=== PATIENT | male | born 1955 | race Caucasian/White ===

== ENCOUNTER 2018-12-12 11:30 | Inpatient (IN) | payer SELFPAY ==
[2018-12-12] MEDS ORDERED: Iopamidol 370 76% 100 ML VIAL ONE (12:00)
[2018-12-12] MEDS ORDERED: Ketorolac Tromethamine 30 MG/ML VIAL ONE (12:21)
[2018-12-12 12:31] LABS: #Basophils 0.1 thou/uL (0.0-0.2); #Eosinphils 0.1 thou/uL (0.0-0.7); #Lymphocytes 2.3 thou/uL (1.20-3.40); #Neutrophils 6.7 thou/uL (1.40-6.50); %Basophils 0.9 % (0.0-1.0); %Eosinophils 0.5 % (0.0-10.0); %Lymphocytes 22.6 % (21.0-51.0); %Monocytes 10.1 % (0.0-10.0); %Neutrophils 65.9 % (42.0-75.0); Hemoglobin 14.5 g/dL (14.0-18.0); Mean Corpuscular HGB CONC 34.1 g/dL (32.0-36.0); Mean Corpuscular Hemoglobin 32.6 pg (27.0-31.0); Mean Corpuscular Volume 95.4 fL (78.0-98.0); Mean Platelet Volume 7.1 fL (7.4-10.4); Platelet Count 202 thou/uL (130-400); RBC Distribution Width 12.1 % (11.5-14.5); Red Blood Cell (RBC) Count 4.46 mill/uL (4.70-6.10); White Blood Cell (WBC) Count 10.1 thou/uL (4.8-10.8)
[2018-12-12 12:31] LABS: Glucose, Urine (Dipstick) Negative (Negative); Leukocyte Trace (Negative); Nitrite Negative (Negative); Protein, Urine (Dipstick) > or equal to 300 mg/dL (Neg-Trace)
[2018-12-12 12:33] LABS: Clarity Opaque (Clear)
[2018-12-12 12:34] LABS: Bilirubin Unable to Interpret (Negative); Blood, Urine Large (Negative); Urobilinogen UNABLE TO INTERPRET mg/dL (Less than 2)
[2018-12-12 12:38] LABS: RBC/HPF Greater than 50 HPF (0-3)
[2018-12-12 12:39] LABS: Bacteria/HPF None Seen HPF (None Seen); Squamous Epithelial 0-3 HPF (0-3)
[2018-12-12 12:47] LABS: ALT (SGPT) 11 U/L (8-55); AST (SGOT) 18 U/L (5-34); Albumin 4.2 g/dL (3.4-4.8); Alkaline Phosphatase 71 U/L (40-110); Anion Gap 13 mmol/L (10-20); BUN (Urea Nitrogen) 7 mg/dL (8.4-25.7); Bilirubin, Total 0.6 mg/dL (0.2-1.2); Calc. Creatinine Clearance 0 mL/min (70-130); Calcium 9.3 mg/dL (7.8-10.44); Carbon Dioxide 27 mmol/L (23-31); Chloride 103 mmol/L (98-107); Estimated GFR-MDRD 77; Globulin 3.6 g/dL (2.4-3.5); Glucose 103 mg/dL (80-115); Potassium 4.1 mmol/L (3.5-5.1); Protein, Total 7.8 g/dL (5.8-8.1); Sodium 139 mmol/L (136-145)
--- NOTE | 2018-12-12 17:03 | CT ---
CT ABDOMEN AND PELVIS WITH IV CONTRAST: Date: 12/12/18 HISTORY: Hematuria. Suprapubic abdominal pain. Patient had a cystoscopy which showed a bladder tumor. FINDINGS: There are mild dependent changes in the lung bases. No calcified gallstones are seen. Liver, spleen, pancreas, and adrenal glands are normal. The kidneys are normal. No free air, free fluid, or lymphadenopathy seen in the abdomen or pelvis. A normal appearing appendi x is noted. There are fluid-filled loops of nondilated, nondistended small bowel. There is colonic di verticulosis. There are vascular calcifications without evidence of aneurysmal dilatation of the abdominal aorta. T here are degenerative changes in the spine. There is a right-sided pars interarticularis defect at L5 . The prostate is enlarged. There is thickening of the wall of the urinary bladder, consistent with the history of recently diagnosed neoplasm. No hydroureteronephrosis is seen. IMPRESSION: 1. Bladder neoplasm. 2. Colonic diverticulosis. 3. Prostatic enlargement. POS: OFF
[2018-12-12] MEDS ORDERED: Ondansetron PF 4 MG/2 ML Vial IVP PRN (17:31)
[2018-12-12] MEDS ORDERED: Ketorolac Tromethamine 30 MG/ML VIAL IVP PRN (17:31)
[2018-12-12] MEDS ORDERED: Oxybutynin 5 MG TAB PO PRN (17:31)
[2018-12-12] MEDS ORDERED: diphenhydrAMINE 50 MG/ML VIAL IVP PRN (17:31)
[2018-12-12] MEDS ORDERED: HYDROcodone/Acetaminophen 10/325 mg Tablet PO PRN (17:31)
[2018-12-12] MEDS: D5 0.9% NS w/ 20 mEq KCl 1,000 ML IV SCH (20:00)
--- NOTE | 2018-12-12 20:25 | HP ---
CHIEF COMPLAINT: Hematuria. HISTORY OF PRESENT ILLNESS: This is a 63-year-old male known to me having been seen in my office recently with longstanding hematuria spanning back at least 3 years. This has recently worsened and he is now having difficulty voiding at times. He has passed multiple clots with several clots this morning prompting him to present to the emergency room here. In speaking with him in the exam room he tells me that he is having to strain to urinate with weak stream that often stops mid stream. He reports suprapubic pain, dysuria, abdominal pain. He has noted an increase in hematuria over the past 2-3 days. He denies flank pain, nausea, vomiting, fevers or chills, weight loss, night sweats. He recently underwent cystoscopy in my office showing a large bladder tumor on the left side of his bladder. He was considering when he could have his transurethral resection performed. However, his change in symptoms has prompted him to seek care now. PAST MEDICAL HISTORY: Enlarged prostate, bladder tumor. PAST SURGICAL HISTORY: Cystoscopy. MEDICATIONS: Tamsulosin. SOCIAL HISTORY: Current every day smoker, he reports 1-2 alcoholic drinks per day, he denies substance abuse. ALLERGIES: NO KNOWN ALLERGIES. REVIEW OF SYSTEMS: A 10-point review of systems is negative except as mentioned in my HPI. PHYSICAL EXAMINATION: GENERAL: Afebrile, vitals stable. No acute distress, conversant. HEAD: Normocephalic, atraumatic. RESPIRATORY: Breathing unlabored, symmetric chest expansion. HEART: Regular rate and rhythm. ABDOMEN: Soft, nontender, nondistended. No flank tenderness, bladder nondistended with mild suprapubic tenderness. SKIN: Warm and dry. : Normal phallus, testicles present in the scrotum. NEUROLOGIC: Alert and oriented x3. PSYCHIATRIC: Normal mood and affect. LABORATORY DATA: Reviewed. White count 10, hemoglobin 14.5, creatinine 0.99. Urinalysis with large blood and trace leukocyte esterase. Imaging-CT pending. Gross hematuria secondary to large bladder tumor. The patient and I discussed his options at this point and I have decided to admit him to the hospital for IV hydration with plans for surgical intervention tomorrow. I explained the transurethral resection of bladder tumor procedure in detail and went over the risks of bleeding, infection, pain, bladder perforation requiring long-term catheter or possibly open repair, inability to resect the entirety of the tumor requiring repeat resection or possibly chemotherapy and radical cystectomy. He expressed understanding. I answered all of his questions at this time. Job ID: [id number]
[2018-12-13 00:55] VITALS: BMI 21.7
[2018-12-13] MEDS: D5 0.9% NS w/ 20 mEq KCl 1,000 ML IV SCH ×2 (06:30→20:31)
[2018-12-13] MEDS ORDERED: Dexamethasone 20 MG/5 ML VIAL ONE (12:42)
[2018-12-13] MEDS ORDERED: PROPOFOL 200 MG/20 ML VIAL ONE (12:42)
[2018-12-13] MEDS ORDERED: Lidocaine 1% PF 5 ML VIAL ONE (12:42)
[2018-12-13] MEDS ORDERED: Ondansetron PF 4 MG/2 ML Vial ONE (12:42)
--- NOTE | 2018-12-13 12:47 | EKG ---
Test Reason : PREOP Blood Pressure : / mmHG Vent. Rate : 063 BPM Atrial Rate : 063 BPM P-R Int : 136 ms QRS Dur : 088 ms QT Int : 450 ms P-R-T Axes : 061 064 079 degrees QTc Int : 460 ms Normal sinus rhythm Normal ECG No previous ECGs available Confirmed by DR. Lisa RUTLEDGE ([id number]) on 12/13/2018 12:47:08 PM Referred By: KAREN Confirmed By:DR. Lisa RUTLEDGE
[2018-12-13] MEDS ORDERED: Levofloxacin 500 mg/D5W 100 ml Premix Bag ONE (16:05)
[2018-12-13] MEDS ORDERED: Fentanyl 100 MCG/2 ML VIAL ONE ×3 (17:24→19:33)
[2018-12-13] MEDS ORDERED: Midazolam HCl 2 mg/2 ml Vial ONE (17:24)
[2018-12-13] MEDS ORDERED: Lidocaine 2% Jelly 5 ML TUBE ONE (17:24)
[2018-12-13] MEDS ORDERED: HYDROmorphone 0.5 MG/0.5 ML SYRINGE ONE (17:24)
--- NOTE | 2018-12-13 17:49 | PRG ---
DATE OF SERVICE: 12/13/2018 CHIEF COMPLAINT: Hematuria. SUBJECTIVE: No issues overnight, continued to have difficulty voiding with bladder pain with straining. He reports that his hematuria has improved overnight. He denies flank pain, nausea, vomiting, fevers, chills, or chest pain. OBJECTIVE: VITAL SIGNS: Afebrile, vital signs stable. GENERAL: In no acute distress. Conversant. LUNGS: Nonlabored breathing. CHEST: Symmetric chest expansion. HEART: Regular rate and rhythm. ABDOMEN: Soft, nontender, AND nondistended. No flank tenderness. No suprapubic tenderness. SKIN: Warm and dry. NEUROLOGIC: Alert and oriented x3. PSYCHIATRIC: Normal mood and affect. LABORATORY DATA: Reviewed. White count 10, creatinine 0.99 from yesterday. EKG normal sinus rhythm. CT reviewed, showing no evidence of hydronephrosis. There is thickening of the posterior wall of the bladder, more on the left side, concerning for possible muscle invasion. No other signs of metastatic disease. ASSESSMENT AND PLAN: A 63-year-old male with a large bladder tumor causing obstruction and hematuria. We discussed his options once again, and I have decided to proceed to the operating room today for transurethral resection of bladder tumor and retrograde pyelograms. I did advise him of the risks once again and warranted that he very well may need a catheter for a few days afterwards. All of his questions were answered. He is in agreement with this plan. Job ID: [id number]
[2018-12-13] MEDS ORDERED: Promethazine HCl 25 MG/ML VIAL IM PRN (18:39)
[2018-12-13] MEDS ORDERED: Promethazine HCl 25 MG/ML VIAL SLOW IVP PRN (18:39)
[2018-12-13] MEDS ORDERED: Ondansetron HCl/PF 4 MG/2 ML Vial IVP PRN (18:39)
[2018-12-13] MEDS ORDERED: Iothalamate Meglumine 60% 50 ML VIAL FS ONE (18:58)
[2018-12-13] MEDS ORDERED: hydrALAZINE 20 MG/ML VIAL ONE (19:23)
[2018-12-13] MEDS: Morphine 4 MG/ML VIAL SLOW IVP PRN (20:17)
[2018-12-13] MEDS: Hyoscyamine Sulfate SL 0.125 mg Tablet SL PRN (22:58)
--- NOTE | 2018-12-13 23:07 | OP ---
DATE OF PROCEDURE: 12/13/2018 PREOPERATIVE DIAGNOSIS: Bladder tumor. PREOPERATIVE DIAGNOSIS: Same. PROCEDURES PERFORMED: Transurethral resection of large bladder tumor, right retrograde pyelogram, transurethral resection of prostate for biopsy, resection and removal of large blood clots. ANESTHESIA: General. COMPLICATIONS: None. BLOOD LOSS: Minimal. SPECIMENS: Prostate biopsy, bladder tumor. DESCRIPTION OF PROCEDURE: After informed consent, the patient was taken to the operating room, transferred to his table under his own power. Anesthesia was established. A time-out was performed showing correct patient, site, and procedure. He was prepped and draped in the supine position. I performed a digital rectal exam noting a 30 g prostate without nodules or induration, there is no pelvic sidewall fixation, no abnormalities on rectal exam. I then switched gloves and passed the rigid cystoscope into the bladder. There was a large blood clot connected to the tumor emanating from the left wall and trigone. I was able to identify the right ureteral orifice easily, this was cannulated with a [place] catheter and a retrograde pyelogram performed showing good filling of the ureter and kidney without abnormalities. After multiple attempts, I was unable to identify the left ureter noting that the tumor occupied the location that I expected to find it. I then switched to the rigid resectoscope and using the resection loop, had to cut the large blood clot in his bladder into small pieces so that it could be removed. I then resected the low-profile high-grade appearing tumor which began about midline of the trigone and extended up the left wall. Total area was about 7 cm. I carried the resection down deeply into what should have been the muscle; however, the tumor persisted. This clearly seems to be muscle invasive bladder cancer. I was unable to identify the ureter during my resection. I then made sure that meticulous hemostasis was achieved. All specimen chips were removed. The bladder was then drained and reinspected noting no further specimen chips or bleeding. I then performed a resection of the prostate from the bladder neck back to the verumontanum and sent the midline slight for staging. Hemostasis was achieved here as well. The scope was then withdrawn and a 22-Comoran 3-way catheter placed with a plug in the irrigation port. Urine was draining clear to light pink after it was connected to a drainage bag. He was then brought down from the lithotomy position. Awoke from anesthesia, transferred back to his hospital bed and taken to PACU in stable condition where he will return to the floor upon recovery. Job ID: [id number]
[2018-12-14] MEDS: D5 0.9% NS w/ 20 mEq KCl 1,000 ML IV SCH ×3 (02:00→17:23)
[2018-12-14] MEDS: Morphine 4 MG/ML VIAL SLOW IVP PRN (04:06)
[2018-12-14] MEDS: Hyoscyamine Sulfate SL 0.125 mg Tablet SL PRN (04:15)
[2018-12-14 08:41] LABS: Hemoglobin 12.7 g/dL (14.0-18.0); Mean Corpuscular Hemoglobin 32.2 pg (27.0-31.0); Mean Corpuscular Volume 97.5 fL (78.0-98.0); Mean Platelet Volume 7.4 fL (7.4-10.4); Platelet Count 191 thou/uL (130-400); RBC Distribution Width 11.9 % (11.5-14.5); Red Blood Cell (RBC) Count 3.94 mill/uL (4.70-6.10); White Blood Cell (WBC) Count 10.2 thou/uL (4.8-10.8)
[2018-12-14 09:08] LABS: ALT (SGPT) 11 U/L (8-55); AST (SGOT) 21 U/L (5-34); Albumin 3.7 g/dL (3.4-4.8); Alkaline Phosphatase 55 U/L (40-110); Anion Gap 14 mmol/L (10-20); BUN (Urea Nitrogen) 8 mg/dL (8.4-25.7); Bilirubin, Total 0.8 mg/dL (0.2-1.2); Calc. Creatinine Clearance 62 mL/min (70-130); Calcium 8.7 mg/dL (7.8-10.44); Carbon Dioxide 24 mmol/L (23-31); Chloride 99 mmol/L (98-107); Estimated GFR-MDRD 55; Glucose 184 mg/dL (80-115); Potassium 4.3 mmol/L (3.5-5.1); Protein, Total 6.7 g/dL (5.8-8.1); Sodium 133 mmol/L (136-145)
[2018-12-15] MEDS: D5 0.9% NS w/ 20 mEq KCl 1,000 ML IV SCH ×3 (01:03→18:49)
[2018-12-15 04:19] LABS: #Eosinphils 0.1 thou/uL (0.0-0.7); #Lymphocytes 1.7 thou/uL (1.20-3.40); #Monocytes 0.9 thou/uL (0.11-0.59); #Neutrophils 4.6 thou/uL (1.40-6.50); %Basophils 0.2 % (0.0-1.0); %Eosinophils 0.8 % (0.0-10.0); %Lymphocytes 22.8 % (21.0-51.0); %Monocytes 12.5 % (0.0-10.0); %Neutrophils 63.6 % (42.0-75.0); Hemoglobin 10.5 g/dL (14.0-18.0); Mean Corpuscular HGB CONC 33.8 g/dL (32.0-36.0); Mean Corpuscular Hemoglobin 32.7 pg (27.0-31.0); Mean Corpuscular Volume 96.9 fL (78.0-98.0); Mean Platelet Volume 7.2 fL (7.4-10.4); Platelet Count 149 thou/uL (130-400); RBC Distribution Width 12.1 % (11.5-14.5); Red Blood Cell (RBC) Count 3.22 mill/uL (4.70-6.10); White Blood Cell (WBC) Count 7.2 thou/uL (4.8-10.8)
[2018-12-15 04:43] LABS: Anion Gap 12 mmol/L (10-20); BUN (Urea Nitrogen) 9 mg/dL (8.4-25.7); Calc. Creatinine Clearance 55 mL/min (70-130); Calcium 8.2 mg/dL (7.8-10.44); Carbon Dioxide 23 mmol/L (23-31); Chloride 107 mmol/L (98-107); Estimated GFR-MDRD 48; Glucose 124 mg/dL (80-115); Potassium 4.2 mmol/L (3.5-5.1); Sodium 138 mmol/L (136-145)
--- NOTE | 2018-12-15 06:24 | PRG ---
DATE OF SERVICE: 12/14/2018 SUBJECTIVE: The patient with hematuria overnight, requiring irrigation and clot removal. Upon arriving to his room this morning, he was in significant distress with clot retention. He denies chest pains, shortness of breath, nausea, vomiting, fevers, or chills. OBJECTIVE: VITAL SIGNS: Afebrile, vitals stable. GENERAL: The patient appears very uncomfortable on rounds. LUNGS: Breathing unlabored. ABDOMEN: Soft, nontender. GENITOURINARY: Bladder distended. SKIN: Warm and dry. No peripheral edema. LABORATORY DATA: White count 10, hemoglobin 12.7, and creatinine 1.3. Postop day 1, transurethral resection of large bladder tumor, likely muscle invasive. Urine was clear for about 2 hours after his surgery yesterday then developed spontaneous bleed. At his bedside this morning, I was able to irrigate a moderate amount of blood clot and start CBI which was running clear on flow to a medium drip rate. Repeat lab work tomorrow. If urine remains mostly clear or better overnight, we will transfer back to the floor tomorrow with discharge anticipated for likely December 16. If his urine does not clear well overnight, he may require return to the operating room for fulguration. Job ID: [id number]
--- NOTE | 2018-12-15 08:15 | PRG ---
DATE OF SERVICE: 12/15/2018 SUBJECTIVE: No acute events overnight. He has not required manual irrigation. CBI has been run slowly. He denies suprapubic pain, flank pain, nausea, vomiting, fevers, or chills. PHYSICAL EXAMINATION: VITAL SIGNS: Afebrile, vitals stable. GENERAL: No acute distress. LUNGS: Nonlabored breathing. ABDOMEN: Soft, nontender, nondistended. Bladder nondistended. SKIN: Warm and dry. Catheter draining clear to light pink with a very slow drip CBI. LABORATORY DATA: Reviewed. Hemoglobin 10.5 down from 12.7 yesterday. Creatinine up to 1.5 from 1.33 yesterday. ASSESSMENT/PLAN: Postoperative day #2 resection of large bladder tumor. Routine postoperative care, pain control, incentive spirometry, SCDs, up to chair, regular diet. Continue CBI as necessary. He will transition back to the regular floor. Anticipate discharge will be possible tomorrow. Job ID: [id number]
[2018-12-15] MEDS ORDERED: Docusate 100 MG CAP PO SCH (11:30)
--- NOTE | 2018-12-15 17:55 | CT ---
CT Stone Protocol: 12/15/2018 4:48 PM HISTORY: Bladder tumor with possible obstruction of the ureter. COMPARISON: 12/12/2018 TECHNIQUE: Multiple contiguous axial images were obtained and a CT of the abdomen and pelvis without IV contrast . Oral contrast was administered. Coronal and sagittal reformats were performed. FINDINGS: This examination is limited for the evaluation of solid organs and vascular structures due to the lac k of intravenous contrast. Lower Chest: within normal limits. Abdomen: Liver: within normal limits. Bile Ducts: Normal caliber. Gallbladder: No calcified gallstones. Normal caliber wall. Pancreas: within normal limits. Spleen: within normal limits. Adrenals: within normal limits. Kidneys: Moderate left hydronephrosis which has worsened compared to the prior exam. Pelvis: Reproductive Organs: No pelvic masses. Ureters: Moderate left hydroureter Bladder: Contains a Nazario catheter. High density material within the bladder likely represents a bloo d clot. It is difficult to evaluate the bladder wall given the high density material within the lumen of the urinary bladder. Bowel: Normal caliber. Mesenteric Lymph Nodes: No enlarged mesenteric lymph nodes. Peritoneum: No ascites or free air, no fluid collection. Vessels: Atherosclerotic calcifications in the aorta Retroperitoneum: within normal limits. Abdominal Wall: within normal limits. Bones: Degenerative changes in the spine. IMPRESSION: 1. There is likely postoperative change in the urinary bladder which contains a blood clot and Nazario catheter. There is moderate worsened left hydronephrosis and hydroureter likely secondary to obstruction of the ureterovesical junction. This could be from edema or tumor of the bladder wall or secondary to the blood clot within the bladder.
--- NOTE | 2018-12-15 17:56 | RAD ---
EXAM: Chest 2 views: HISTORY: Transitional cell carcinoma of the urinary bladder COMPARISON: None. FINDINGS: There is a normal-sized cardiomediastinal silhouette. There is no evidence of consolidation, mass, or pleural effusion. The bones are unremarkable. IMPRESSION: No evidence of acute cardiopulmonary disease
[2018-12-15] MEDS: Docusate 100 MG CAP PO SCH (20:54)
[2018-12-16 06:02] LABS: Hemoglobin 10.9 g/dL (14.0-18.0); Mean Corpuscular HGB CONC 33.3 g/dL (32.0-36.0); Mean Corpuscular Hemoglobin 31.7 pg (27.0-31.0); Mean Corpuscular Volume 95.3 fL (78.0-98.0); Mean Platelet Volume 7.4 fL (7.4-10.4); Platelet Count 167 thou/uL (130-400); RBC Distribution Width 11.7 % (11.5-14.5); Red Blood Cell (RBC) Count 3.44 mill/uL (4.70-6.10); White Blood Cell (WBC) Count 7.6 thou/uL (4.8-10.8)
[2018-12-16 06:23] LABS: Anion Gap 11 mmol/L (10-20); BUN (Urea Nitrogen) 6 mg/dL (8.4-25.7); Calc. Creatinine Clearance 59 mL/min (70-130); Calcium 8.8 mg/dL (7.8-10.44); Carbon Dioxide 26 mmol/L (23-31); Chloride 103 mmol/L (98-107); Estimated GFR-MDRD 52; Glucose 105 mg/dL (80-115); Potassium 3.9 mmol/L (3.5-5.1); Sodium 136 mmol/L (136-145)
[2018-12-16] MEDS: Docusate 100 MG CAP PO SCH ×2 (09:03→21:01)
[2018-12-16] MEDS ORDERED: PROPOFOL 200 MG/20 ML VIAL ONE (10:47)
[2018-12-16] MEDS ORDERED: ePHEDrine/0.9% NaCl/PF SYRINGE 50 mg/10 ml ONE (10:47)
[2018-12-16] MEDS ORDERED: Lidocaine 1% PF 5 ML VIAL ONE (10:47)
[2018-12-16] MEDS ORDERED: Dexamethasone 20 MG/5 ML VIAL ONE (10:47)
[2018-12-16] MEDS ORDERED: Ondansetron PF 4 MG/2 ML Vial ONE (10:47)
[2018-12-16] MEDS ORDERED: Levofloxacin 500 mg/D5W 100 ml Premix Bag ONE (12:59)
[2018-12-16] MEDS ORDERED: Midazolam HCl 2 mg/2 ml Vial ONE (13:41)
[2018-12-16] MEDS ORDERED: Fentanyl 100 MCG/2 ML VIAL ONE (13:43)
--- NOTE | 2018-12-16 20:17 | CON ---
DATE OF CONSULTATION: REASON FOR CONSULTATION: Transitional cell carcinoma. HISTORY OF PRESENT ILLNESS: Mr. Del Toro is a pleasant 63-year-old gentleman, who has long-standing hematuria, being followed by Dr. Padilla. He had significantly worse symptoms over the past few days. He underwent cystoscopy, which showed a large bladder tumor on the left side. He underwent a transurethral resection of the bladder tumor. Pathology returned high-grade urothelial carcinoma consistent with transitional cell, was extensively invasive and necrotic. The patient has been on continuous bladder irrigation and unfortunately has planned clot retrieval today. He has undergone a CT of his abdomen and pelvis, which shows no metastatic disease. He denies any complaints at this time. PAST MEDICAL HISTORY: Enlarged prostate. PAST SURGICAL HISTORY: Cystoscopy. ALLERGIES: NO KNOWN DRUG ALLERGIES. HOME MEDICATIONS: Flomax. FAMILY HISTORY: Father had prostate cancer. SOCIAL HISTORY: Single, 45 pack-year history of smoking, drinks beer 1 to 2 daily. REVIEW OF SYSTEMS: A 10-point review of systems is negative except for noted in HPI. PHYSICAL EXAMINATION: VITAL SIGNS: Temperature is 98.3, pulse is 82, respiratory rate 16, BP is 111/72. He is 96% on room air. GENERAL: This is a well-developed, well-nourished male, in no acute distress. HEENT: Normocephalic, atraumatic. Pupils are equal and reactive to light. NECK: Supple. CV: Regular rate and rhythm. LUNGS: Clear. ABDOMEN: Soft. : He has a Nazario catheter in place with CBI, blood-tinged urine. EXTREMITIES: No clubbing or cyanosis. SKIN: No rash. HEMATOLOGICAL: No petechiae or purpura. NEUROLOGIC: Nonfocal. PERTINENT LABS AND X-RAYS: Current WBCs 7.6, hemoglobin 10.9, hematocrit 32.8, platelet count is 167,000, he has 63% neutrophils, 22% lymphocytes. Sodium 136, potassium 3.9, chloride 103, CO2 is 26, BUN is 6, creatinine 1.38, calcium 8.8, bilirubin 0.8, AST is 21, ALT is 11, alkaline phosphatase is 55, serum total protein 6.7, albumin 3.7, and globulin 3. Radiology per HPI. ASSESSMENT: High-grade urothelial transitional cell carcinoma. DISCUSSION: The patient is having clot retrieval today and will likely go home over the weekend. He has seen financial counselors and will continue to work on financial assistance. We will see the patient in the outpatient setting on 12/29, where he and Dr. Du can discuss treatment options. Clinic information was provided to the patient. All questions were answered. Thank you for the consult. Job ID: [id number]
--- NOTE | 2018-12-17 00:04 | OP ---
DATE OF PROCEDURE: 12/16/2018 PREOPERATIVE DIAGNOSIS: intravesical blood clot. POSTOPERATIVE DIAGNOSIS: same PROCEDURE: Cystoscopy with clot evacuation and fulguration. ANESTHESIA: General. COMPLICATIONS: None. SPECIMENS: None. BLOOD LOSS: Minimal. DESCRIPTION OF PROCEDURE: After informed consent, the patient was taken to the operating room, transferred to the table under his own power. Anesthesia was established. A time-out performed showing the correct patient, site, and procedure. Preoperative antibiotics were administered. He was prepped and draped in the lithotomy position. Nazario catheter was removed. I then inserted the rigid resectoscope into the bladder. There was a large clot in the dependent portion of the bladder. This was removed with the [employer] evacuator. Once the clot was removed in its entirety, I switched the resection loop and cauterized the previous resection bed. No significant bleeding was noted. However, there were several areas with small amount of bleeding around the edges. The bladder was drained and reexamined noting no bleeding at that point. The scope was then withdrawn and a 22-Chilean 3-way Nazario catheter placed with 20 mL instilled in the balloon. This was connected to CBI and was clear on a very slow drip. He was awoken from anesthesia, transferred back to his hospital bed and taken to PACU in stable condition, where he will proceed to the floor upon recovery. Job ID: [id number] [facility]
[2018-12-17] MEDS: Docusate 100 MG CAP PO SCH (07:26)
[2018-12-17 07:56] VITALS: BP 130/71; TEMP 98.2
--- NOTE | 2018-12-19 08:21 | PRG ---
DATE OF SERVICE: 12/16/2018 SUBJECTIVE: No acute events overnight. He denies back pain, abdominal pain, nausea, vomiting, fevers, or chills. OBJECTIVE: VITAL SIGNS: Afebrile. Vitals stable. GENERAL: Urine remains very light pink on slow CBI. No acute distress. LUNGS: Nonlabored breathing. ABDOMEN: Soft. No flank tenderness. SKIN: Warm and dry. EXTREMITIES: No peripheral edema. CT from last night showed a large clot in the bladder and mild, but worse hydronephrosis on the left side. Hemoglobin stable. Creatinine reduced from yesterday. Postoperative day #3, transurethral resection of large bladder tumor with high- grade muscle invasive pathology. Based on the CT findings, I have recommended that we will return to the operating room today for cystoscopy and clot evacuation. I explained my rationale and went over the procedure in detail including risks. The patient is in agreement. Job ID: [id number] MTDD
--- NOTE | 2018-12-19 10:24 | DIS ---
DATE OF ADMISSION: 12/12/2018 DATE OF DISCHARGE: 12/17/2018 CHIEF COMPLAINT: Hematuria and difficulty voiding. FINAL DIAGNOSES: Muscle invasive high-grade bladder cancer and hydronephrosis. HOSPITAL COURSE: A 63-year-old male with longstanding hematuria, presented to the emergency room with continued hematuria and difficulty voiding. He was admitted and CT scan indicated large tumor occupying the left wall of the bladder. He was taken the next day for transurethral resection of bladder tumor noting a high-grade appearing low profile tumor. His urine was clear for the first few hours after the surgery; however, overnight, he developed spontaneous bleeding and required initiation of CBI. The following day, I performed clot evacuation at bedside; however, his creatinine alek over the next 2 days to about 1.5. At which point, I repeated a CT scan which showed only mild left hydronephrosis consistent with my inability to find the left UO at the time of transurethral resection. The CT also showed large blood clot retained in the bladder. He was taken back to the operating room on December 16 for cystoscopy with clot evacuation and fulguration. His urine remained clear overnight without CBI. The following morning, his Nazario catheter was removed, and he was ready for discharge home. CONDITION AT DISCHARGE: Stable. PRESCRIPTIONS: Bactrim, oxybutynin, tramadol. PLAN: The patient will have followup with Medical Oncology on December 29 and I will see him after that visit. Job ID: [id number]
== END 2018-12-17 11:10 | disposition home or self-care (01) | DRG 669 ==
LOC: ERS 11:30 → SURG A 18:55 → IMCU/EMU 12-14 02:23 → SURG A 12-15 21:23
PROVIDERS: ADMIT Urology; ATTEND Urology
PROC: 0TBB8ZZ Excision of Bladder, Via Natural or Artificial Opening Endoscopic (ICD-10-PCS; principal; 2018-12-13)
PROC: 0TBC8ZZ Excision of Bladder Neck, Via Natural or Artificial Opening Endoscopic (ICD-10-PCS; 2018-12-13)
PROC: 0VB08ZX Excision of Prostate, Via Natural or Artificial Opening Endoscopic, Diagnostic (ICD-10-PCS; 2018-12-13)
PROC: BT1D1ZZ Fluoroscopy of Right Kidney, Ureter and Bladder using Low Osmolar Contrast (ICD-10-PCS; 2018-12-13)
PROC: 0TCB8ZZ Extirpation of Matter from Bladder, Via Natural or Artificial Opening Endoscopic (ICD-10-PCS; 2018-12-13)
PROC: 0T5B8ZZ Destruction of Bladder, Via Natural or Artificial Opening Endoscopic (ICD-10-PCS; 2018-12-16)
PROC: 0TCB8ZZ Extirpation of Matter from Bladder, Via Natural or Artificial Opening Endoscopic (ICD-10-PCS; 2018-12-16)
DX: C67.4 Malignant neoplasm of posterior wall of bladder (principal); N13.30 Unspecified hydronephrosis; F17.200 Nicotine dependence, unspecified, uncomplicated; R31.0 Gross hematuria
CPT/HCPCS: 36415; 71046; 74176; 74177; 80048; 80053; 81003; 81015; 85025; 85027; 86850; 86900; 86901; 88305; 88307; 93005; 93010; 96361; 96374; C1758; J0360; J1100; J1170; J1885; J1956; J2001; J2250; J2270; J2405; J2704; J3010; J3480; Q9967

== ENCOUNTER 2019-01-16 09:38 | Outpatient (CLI) | payer SELFPAY ==
[2019-01-16 10:08] LABS: Estimated GFR-MDRD - POC Greater than 90
--- NOTE | 2019-01-16 10:37 | CT ---
CT chest with IV contrast HISTORY: Bladder cancer. Initial staging. FINDINGS: Lungs are hyperinflated. Mild bullae at the upper lobes. No focal lung mass, infiltrate, pl eural fluid, or pneumothorax. Nonenlarged lymph nodes throughout the mediastinum. Calcification in the arterial structures. Tiny bone islands within the right ribs. No focal aggressive lesions. Degenerative changes of the cervical and thoracic spine. Minimal chronic-appearing physiologic wedgin g of the T5 and T6 vertebral bodies. IMPRESSION: No evidence of metastatic disease of the chest. Emphysema. Atherosclerosis.
[2019-01-16] MEDS ORDERED: Iopamidol-370 76% 500 ML 1 ML ONE (11:05)
== END 2019-01-16 09:39 | disposition home or self-care (01) ==
LOC: BICCT 09:38
PROVIDERS: ATTEND Internal Medicine Hematology & Oncology
DX: C67.2 Malignant neoplasm of lateral wall of bladder (principal); I70.0 Atherosclerosis of aorta; J43.9 Emphysema, unspecified
CPT/HCPCS: 71260; 82565; Q9967

== ENCOUNTER 2019-01-26 05:30 | Day surgery (SDC) | payer OTHER, SELFPAY ==
[2019-01-25 10:23] VITALS: BMI 21.6
[2019-01-26 06:40] LABS: #Lymphocytes 1.5 thou/uL (1.20-3.40); #Monocytes 0.8 thou/uL (0.11-0.59); #Neutrophils 4.4 thou/uL (1.40-6.50); %Basophils 0.6 % (0.0-1.0); %Eosinophils 0.7 % (0.0-10.0); %Lymphocytes 22.4 % (21.0-51.0); %Monocytes 11.6 % (0.0-10.0); %Neutrophils 64.6 % (42.0-75.0); Hemoglobin 14.8 g/dL (14.0-18.0); Mean Corpuscular Hemoglobin 32.2 pg (27.0-31.0); Mean Corpuscular Volume 94.7 fL (78.0-98.0); Mean Platelet Volume 7.3 fL (7.4-10.4); Platelet Count 202 thou/uL (130-400); RBC Distribution Width 11.9 % (11.5-14.5); White Blood Cell (WBC) Count 6.7 thou/uL (4.8-10.8)
[2019-01-26] MEDS ORDERED: Bupivacaine 0.25% HCL 30 ML VIAL ONE (06:42)
[2019-01-26] MEDS ORDERED: Lidocaine 2% w/Epinephrine 1:200K 20 ML VIAL ONE (06:50)
[2019-01-26] MEDS ORDERED: Lidocaine 1% w/Epinephrine 1:100K 20 ML VIAL ONE (06:51)
[2019-01-26] MEDS ORDERED: Fentanyl 100 MCG/2 ML VIAL ONE (06:56)
[2019-01-26 07:01] LABS: Anion Gap 16 mmol/L (10-20); BUN (Urea Nitrogen) 10 mg/dL (8.4-25.7); Calc. Creatinine Clearance 86 mL/min (70-130); Calcium 10.1 mg/dL (7.8-10.44); Carbon Dioxide 27 mmol/L (23-31); Chloride 100 mmol/L (98-107); Estimated GFR-MDRD 81; Glucose 99 mg/dL (80-115); Potassium 4.3 mmol/L (3.5-5.1); Sodium 139 mmol/L (136-145)
--- NOTE | 2019-01-26 08:20 | RAD ---
RADIOGRAPH CHEST 1 VIEW: DATE: 01/26/2019 HISTORY: 63-year-old male status post MediPort placement. FINDINGS: There are no airspace densities, pulmonary edema, pneumothorax, or cardiomegaly. The lateral costophr enic angles are sharp. Right IJ MediPort distal tip overlies SVC. IMPRESSION: 1. Right-sided implantable vascular access port without pneumothorax. 2. No acute cardiopulmonary findings.
[2019-01-26] MEDS ORDERED: PROPOFOL 200 MG/20 ML VIAL ONE (14:27)
[2019-01-26] MEDS ORDERED: ePHEDrine/0.9% NaCl/PF SYRINGE 50 mg/10 ml ONE (14:27)
[2019-01-26] MEDS ORDERED: Ondansetron PF 4 MG/2 ML Vial ONE (14:27)
[2019-01-26] MEDS ORDERED: Lidocaine 1% PF 5 ML VIAL ONE (14:27)
--- NOTE | 2019-01-27 13:13 | OP ---
DATE OF PROCEDURE: 01/26/2019 PROCEDURE PERFORMED: Right internal jugular MediPort with ultrasound and fluoroscopic guidance. PREOPERATIVE DIAGNOSIS: Bladder cancer. POSTOPERATIVE DIAGNOSIS: Bladder cancer. INDICATIONS FOR PROCEDURE: Mr. Del Toro is a 63-year-old with muscle invasive bladder cancer, who is undergoing neoadjuvant chemotherapy. A MediPort has been requested for this. Due to his COPD, the recommendation was made to place this in the internal jugular position to minimize risk of pneumothorax. DESCRIPTION OF PROCEDURE: After informed consent was obtained and appropriate preoperative antibiotics administered, the patient was taken to the operating room. He was placed in supine position, and anesthesia was administered. He was prepped and draped in standard sterile fashion, and a sterile ultrasound probe was used to identify the patent compressible right internal jugular vein. Local anesthesia was infused, and the vein was accessed under direct ultrasound guidance with excellent flow of dark venous nonpulsatile blood. A wire was threaded and was confirmed by ultrasound to be within the patent compressible vein and by fluoroscopy to be within the superior vena cava. Additional local anesthesia was infused through the skin and subcutaneous tissues of the right neck and chest, and a skin incision was made over the pectoral muscle. A subcutaneous pocket was created, and the port was placed within this pocket with Prolene sutures. A clamped MediPort tubing was then tunneled between this incision and the right neck access site. A dilator and sheath were placed over the wire, and the dilator and wire were removed leaving the sheath in place. The MediPort tubing was then placed through the sheath, which was split and removed leaving the MediPort tubing in place. This was positioned with the end in the superior vena cava just above the atrium under fluoroscopic guidance. The tubing was then connected to the MediPort, which was secured within the pocket with additional Prolene sutures. The port was aspirated with excellent flow of dark venous nonpulsatile blood and easily flushed without resistance. The subcutaneous tissues were reapproximated with 3-0 Monocryl sutures, and the skin incisions were closed with running 4-0 subcuticular Monocryl sutures. Dermabond dressings were placed, and the patient was taken to Recovery in good condition. ESTIMATED BLOOD LOSS: Minimal. COMPLICATIONS: There were no complications. SPECIMENS: There were no specimens. Job ID: [id number]
== END 2019-01-26 09:15 | disposition home or self-care (01) ==
LOC: SDC 05:30
PROVIDERS: ATTEND Surgery
PROC: 05HM33Z Insertion of Infusion Device into Right Internal Jugular Vein, Percutaneous Approach (ICD-10-PCS; principal; 2019-01-26)
DX: C67.9 Malignant neoplasm of bladder, unspecified (principal); F17.210 Nicotine dependence, cigarettes, uncomplicated; J44.9 Chronic obstructive pulmonary disease, unspecified
CPT/HCPCS: 71045; 76000; 80048; 85025; C1788; J0131; J0690; J1642; J2001; J2405; J2704; J3010; S0020

== ENCOUNTER 2019-02-15 10:02 | Day surgery (SDC) | payer OTHER ==
[~2019-02-15 10:02] MED LIST: CISPLATIN IV SCH; Dexamethasone Sod Phosphate 20 MG in Sodium Chloride 0.9% 50 ML IVPB SCH; GEMCITABINE HCL IVPB SCH; MANNITOL IV SCH; Palonosetron HCl 0.25 MG in Sodium Chloride 0.9% 50 ML IVPB SCH; SODIUM CHLORIDE 0.9% IV SCH; SODIUM CHLORIDE 0.9% IVPB SCH; Sodium Chloride 0.9% 1,000 ML IV SCH; Sodium Chloride 0.9% 500 ML IVPB SCH
[2019-02-15] MEDS ORDERED: Sodium Chloride 0.9% 20 ML ONE (10:05)
[2019-02-15 12:20] VITALS: BP 154/75; TEMP 98.6
== END 2019-02-15 16:00 | disposition home or self-care (01) ==
LOC: ONC/OP 10:02
PROVIDERS: ATTEND Internal Medicine Hematology & Oncology
DX: Z51.11 Encounter for antineoplastic chemotherapy (principal); C67.2 Malignant neoplasm of lateral wall of bladder; F17.210 Nicotine dependence, cigarettes, uncomplicated; Z80.42 Family history of malignant neoplasm of prostate
CPT/HCPCS: 96367; 96375; 96413; 96415; 96417; J1100; J1453; J2150; J2469; J3480; J3490; J7050; J9060; J9201

== ENCOUNTER 2019-02-22 09:49 | Day surgery (SDC) | payer OTHER ==
[~2019-02-22 09:49] MED LIST changes: -CISPLATIN IV SCH; +Dexamethasone Sod Phosphate 10 MG, Ondansetron 2MG/ML MDV 10 MG in Sodium Chloride 0.9%... IVPB SCH; -Dexamethasone Sod Phosphate 20 MG in Sodium Chloride 0.9% 50 ML IVPB SCH; -MANNITOL IV SCH; -Palonosetron HCl 0.25 MG in Sodium Chloride 0.9% 50 ML IVPB SCH; -SODIUM CHLORIDE 0.9% IV SCH; -Sodium Chloride 0.9% 1,000 ML IV SCH; -Sodium Chloride 0.9% 500 ML IVPB SCH
[2019-02-22] MEDS ORDERED: SODIUM CHLORIDE 0.9% IVPB SCH (10:00)
[2019-02-22] MEDS ORDERED: GEMCITABINE HCL IVPB SCH (10:00)
[2019-02-22 12:24] VITALS: BP 131/78; TEMP 98.8
== END 2019-02-22 12:29 | disposition home or self-care (01) ==
LOC: ONC/OP 09:49
PROVIDERS: ATTEND Internal Medicine Hematology & Oncology
DX: Z51.11 Encounter for antineoplastic chemotherapy (principal); C67.2 Malignant neoplasm of lateral wall of bladder
CPT/HCPCS: 96375; 96413; J1100; J2405; J7050; J9201

== ENCOUNTER → 2019-03-15 | Day surgery (SDC) | payer OTHER ==
[~2019-03-15] MED LIST changes: +CISPLATIN IV SCH; -Dexamethasone Sod Phosphate 10 MG, Ondansetron 2MG/ML MDV 10 MG in Sodium Chloride 0.9%... IVPB SCH; +Dexamethasone Sod Phosphate 20 MG in Sodium Chloride 0.9% 50 ML IVPB SCH; +MANNITOL IV SCH; +Palonosetron HCl 0.25 MG in Sodium Chloride 0.9% 50 ML IVPB SCH; +SODIUM CHLORIDE 0.9% IV SCH; +Sodium Chloride 0.9% 1,000 ML IV SCH; +Sodium Chloride 0.9% 20 ML ONE
[2019-03-15 16:23] VITALS: BP 148/71; TEMP 98.6
== END ==
LOC: ONC/OP 11:28
PROVIDERS: ATTEND Internal Medicine Hematology & Oncology
DX: Z51.11 Encounter for antineoplastic chemotherapy (principal); C67.2 Malignant neoplasm of lateral wall of bladder
CPT/HCPCS: 96361; 96367; 96375; 96413; 96415; 96417; J1100; J1453; J2150; J2469; J3480; J3490; J7050; J9060; J9201

== ENCOUNTER 2019-03-22 09:53 | Day surgery (SDC) | payer OTHER ==
[~2019-03-22 09:53] MED LIST changes: -CISPLATIN IV SCH; -Dexamethasone Sod Phosphate 20 MG in Sodium Chloride 0.9% 50 ML IVPB SCH; -MANNITOL IV SCH; +Ondansetron 2MG/ML MDV 10 MG in Sodium Chloride 0.9% 50 ML IVPB SCH; +Ondansetron 2MG/ML MDV 10 MG, Dexamethasone Sod Phosphate 10 MG in Sodium Chloride 0.9%... IVPB SCH; -Palonosetron HCl 0.25 MG in Sodium Chloride 0.9% 50 ML IVPB SCH; -SODIUM CHLORIDE 0.9% IV SCH; -Sodium Chloride 0.9% 1,000 ML IV SCH; -Sodium Chloride 0.9% 20 ML ONE
[2019-03-22 10:47] VITALS: BP 141/68; TEMP 98.5
== END 2019-03-22 14:56 | disposition home or self-care (01) ==
LOC: ONC/OP 09:53
PROVIDERS: ATTEND Internal Medicine Hematology & Oncology
DX: Z51.11 Encounter for antineoplastic chemotherapy (principal); C67.2 Malignant neoplasm of lateral wall of bladder
CPT/HCPCS: 96375; 96413; J1100; J2405; J7050; J9201

== ENCOUNTER 2019-03-29 10:13 | Day surgery (SDC) | payer OTHER ==
[~2019-03-29 10:13] MED LIST changes: -Ondansetron 2MG/ML MDV 10 MG in Sodium Chloride 0.9% 50 ML IVPB SCH
[2019-03-29] MEDS ORDERED: Sodium Chloride 0.9% 20 ML ONE (10:25)
[2019-03-29 17:21] VITALS: BP 125/75; TEMP 98.2
== END 2019-03-29 17:23 | disposition home or self-care (01) ==
LOC: ONC/OP 10:13
PROVIDERS: ATTEND Internal Medicine Hematology & Oncology
DX: Z51.11 Encounter for antineoplastic chemotherapy (principal); C67.2 Malignant neoplasm of lateral wall of bladder
CPT/HCPCS: 96375; 96413; J1100; J1642; J2405; J7050; J9201

== ENCOUNTER 2019-03-30 12:58 | Day surgery (SDC) | payer OTHER ==
[~2019-03-30 12:58] MED LIST changes: -GEMCITABINE HCL IVPB SCH; -Ondansetron 2MG/ML MDV 10 MG, Dexamethasone Sod Phosphate 10 MG in Sodium Chloride 0.9%... IVPB SCH; +PEGFILGRASTIM-JMDB 6 MG/0.6 ML SYRINGE SQ SCH; -SODIUM CHLORIDE 0.9% IVPB SCH
[2019-03-30 13:20] VITALS: BP 136/65; TEMP 97.6
== END 2019-03-30 13:28 | disposition home or self-care (01) ==
LOC: ONC/OP 12:58
PROVIDERS: ATTEND Internal Medicine Hematology & Oncology
DX: C67.2 Malignant neoplasm of lateral wall of bladder (principal)
CPT/HCPCS: 96372; Q5108

== ENCOUNTER 2019-04-12 09:22 | Day surgery (SDC) | payer OTHER ==
[~2019-04-12 09:22] MED LIST changes: +CISPLATIN IV SCH; +Dexamethasone Sod Phosphate 20 MG in Sodium Chloride 0.9% 50 ML IVPB SCH; +GEMCITABINE HCL IVPB SCH; +MANNITOL IV SCH; -PEGFILGRASTIM-JMDB 6 MG/0.6 ML SYRINGE SQ SCH; +Palonosetron HCl 0.25 MG in Sodium Chloride 0.9% 50 ML IVPB SCH; +SODIUM CHLORIDE 0.9% IV SCH; +SODIUM CHLORIDE 0.9% IVPB SCH; +Sodium Chloride 0.9% 1,000 ML IV SCH
[2019-04-12] MEDS ORDERED: Sodium Chloride 0.9% 20 ML ONE (09:27)
[2019-04-12 09:43] VITALS: BP 150/74; TEMP 98.4
== END 2019-04-12 14:32 | disposition home or self-care (01) ==
LOC: ONC/OP 09:22
PROVIDERS: ATTEND Internal Medicine Hematology & Oncology
DX: Z51.11 Encounter for antineoplastic chemotherapy (principal); C67.2 Malignant neoplasm of lateral wall of bladder
CPT/HCPCS: 96367; 96376; 96413; 96415; 96417; J1100; J1453; J1642; J2150; J2469; J3480; J3490; J7050; J9060; J9201

== ENCOUNTER 2019-04-19 10:40 | Day surgery (SDC) | payer OTHER ==
[~2019-04-19 10:40] MED LIST changes: -CISPLATIN IV SCH; +Dexamethasone Sod Phosphate 10 MG, Ondansetron 2MG/ML MDV 10 MG in Sodium Chloride 0.9%... IVPB SCH; -Dexamethasone Sod Phosphate 20 MG in Sodium Chloride 0.9% 50 ML IVPB SCH; -MANNITOL IV SCH; -Palonosetron HCl 0.25 MG in Sodium Chloride 0.9% 50 ML IVPB SCH; -SODIUM CHLORIDE 0.9% IV SCH; -Sodium Chloride 0.9% 1,000 ML IV SCH
[2019-04-19] MEDS ORDERED: Sodium Chloride 0.9% 20 ML ONE (10:47)
[2019-04-19 12:25] VITALS: BP 143/68; TEMP 97.9
== END 2019-04-19 12:28 | disposition home or self-care (01) ==
LOC: ONC/OP 10:40
PROVIDERS: ATTEND Internal Medicine Hematology & Oncology
DX: Z51.11 Encounter for antineoplastic chemotherapy (principal); C67.2 Malignant neoplasm of lateral wall of bladder
CPT/HCPCS: 96375; 96413; J1100; J1642; J2405; J7050; J9201

== ENCOUNTER 2019-05-01 11:17 | Day surgery (SDC) | payer OTHER ==
[~2019-05-01 11:17] MED LIST changes: +Famotidine/PF 20 mg/2ml Vial ONE
[2019-05-01 11:40] VITALS: BP 137/69; TEMP 98
[2019-05-01] MEDS: Sodium Chloride 0.9% 20 ML ONE ×2 (12:53→13:18)
== END 2019-05-01 14:11 | disposition home or self-care (01) ==
LOC: ONC/OP 11:17
PROVIDERS: ATTEND Internal Medicine Hematology & Oncology
DX: Z51.11 Encounter for antineoplastic chemotherapy (principal); C67.2 Malignant neoplasm of lateral wall of bladder
CPT/HCPCS: 96375; 96413; J1100; J1642; J2405; J7050; J9201; S0028

== ENCOUNTER 2019-05-02 13:05 | Day surgery (SDC) | payer OTHER ==
[2019-05-02] MEDS ORDERED: PEGFILGRASTIM-JMDB 6 MG/0.6 ML SYRINGE ONE (13:07)
== END 2019-05-02 13:53 | disposition home or self-care (01) ==
LOC: ONC/OP 13:05
PROVIDERS: ATTEND Internal Medicine Hematology & Oncology
DX: Z51.11 Encounter for antineoplastic chemotherapy (principal); C67.2 Malignant neoplasm of lateral wall of bladder
CPT/HCPCS: 96372; Q5108

== ENCOUNTER 2019-05-15 11:19 | Day surgery (SDC) | payer OTHER ==
[~2019-05-15 11:19] MED LIST changes: +CISPLATIN IV SCH; -Dexamethasone Sod Phosphate 10 MG, Ondansetron 2MG/ML MDV 10 MG in Sodium Chloride 0.9%... IVPB SCH; +Dexamethasone Sod Phosphate 20 MG in Sodium Chloride 0.9% 50 ML IVPB SCH; -Famotidine/PF 20 mg/2ml Vial ONE; +MANNITOL IV SCH; +Palonosetron HCl 0.25 MG in Sodium Chloride 0.9% 50 ML IVPB SCH; +SODIUM CHLORIDE 0.9% IV SCH
[2019-05-15 12:47] VITALS: BP 114/71; TEMP 99
== END 2019-05-15 16:46 | disposition home or self-care (01) ==
LOC: ONC/OP 11:19
PROVIDERS: ATTEND Internal Medicine Hematology & Oncology
DX: Z51.11 Encounter for antineoplastic chemotherapy (principal); C67.2 Malignant neoplasm of lateral wall of bladder
CPT/HCPCS: 96367; 96368; 96413; 96415; 96417; J1100; J1453; J2150; J2469; J3480; J3490; J7030; J7050; J9060; J9201

== ENCOUNTER 2019-05-22 11:26 | Day surgery (SDC) | payer OTHER ==
[~2019-05-22 11:26] MED LIST changes: -CISPLATIN IV SCH; +Dexamethasone Sod Phosphate 10 MG, Ondansetron 2MG/ML MDV 10 MG in Sodium Chloride 0.9%... IVPB SCH; -MANNITOL IV SCH; -Palonosetron HCl 0.25 MG in Sodium Chloride 0.9% 50 ML IVPB SCH; -SODIUM CHLORIDE 0.9% IV SCH
[2019-05-22] MEDS ORDERED: Sodium Chloride 0.9% 20 ML ONE (11:31)
[2019-05-22 11:57] VITALS: BP 126/63; TEMP 97.6
== END 2019-05-22 12:57 | disposition home or self-care (01) ==
LOC: ONC/OP 11:26
PROVIDERS: ATTEND Internal Medicine Hematology & Oncology
DX: Z51.11 Encounter for antineoplastic chemotherapy (principal); C67.2 Malignant neoplasm of lateral wall of bladder
CPT/HCPCS: 96375; 96413; J1100; J1642; J2405; J7050; J9201

== ENCOUNTER 2019-06-05 10:05 | Day surgery (SDC) | payer OTHER ==
[~2019-06-05 10:05] MED LIST changes: -Dexamethasone Sod Phosphate 20 MG in Sodium Chloride 0.9% 50 ML IVPB SCH; +GEMZAR IVPB SCH
[2019-06-05] MEDS ORDERED: Sodium Chloride 0.9% 20 ML ONE (10:13)
[2019-06-05 10:30] VITALS: BP 146/67; TEMP 98.3
== END 2019-06-05 11:49 | disposition home or self-care (01) ==
LOC: ONC/OP 10:05
PROVIDERS: ATTEND Internal Medicine Hematology & Oncology
DX: Z51.11 Encounter for antineoplastic chemotherapy (principal); C67.2 Malignant neoplasm of lateral wall of bladder
CPT/HCPCS: 96375; 96413; J1100; J1642; J2405; J3490; J7050; J9201

== ENCOUNTER 2019-06-06 11:40 | Day surgery (SDC) | payer OTHER ==
[~2019-06-06 11:40] MED LIST changes: -Dexamethasone Sod Phosphate 10 MG, Ondansetron 2MG/ML MDV 10 MG in Sodium Chloride 0.9%... IVPB SCH; -GEMCITABINE HCL IVPB SCH; -GEMZAR IVPB SCH; +PEGFILGRASTIM-JMDB 6 MG/0.6 ML SYRINGE ONE; +PEGFILGRASTIM-JMDB 6 MG/0.6 ML SYRINGE SQ SCH; -SODIUM CHLORIDE 0.9% IVPB SCH
[2019-06-06 11:45] VITALS: BP 149/67; TEMP 98.3
== END 2019-06-06 11:46 | disposition home or self-care (01) ==
LOC: ONC/OP 11:40
PROVIDERS: ATTEND Internal Medicine Hematology & Oncology
DX: Z51.11 Encounter for antineoplastic chemotherapy (principal); C67.2 Malignant neoplasm of lateral wall of bladder
CPT/HCPCS: 96372; Q5108

== ENCOUNTER 2019-07-14 07:28 | Outpatient (CLI) | payer OTHER ==
--- NOTE | 2019-07-14 11:21 | RAD ---
RADIOGRAPH CHEST 2 VIEWS: DATE: 07/14/2019 HISTORY: Preoperative clearance for 64-year-old male FINDINGS: There is no airspace density, pulmonary edema, pleural effusion, pneumothorax, or cardiomegaly. Right IJ implantable vascular access port with distal tip at SVC. IMPRESSION: 1. No acute cardiopulmonary findings. 2. Right-sided implantable vascular access port.
[2019-07-14 18:09] LABS: SARS-CoV-2 MS2 Positive; SARS-CoV-2 N Gene Negative; SARS-CoV-2 S Gene Negative; SARS-CoV-2 orf1ab Negative
== END 2019-07-14 07:29 | disposition home or self-care (01) ==
LOC: LABBT 07:28
PROVIDERS: ATTEND Urology
DX: Z01.818 Encounter for other preprocedural examination (principal); Z11.59 Encounter for screening for other viral diseases; C67.1 Malignant neoplasm of dome of bladder
CPT/HCPCS: 71046; 87635; U0003

== ENCOUNTER 2019-07-14 10:00 | Inpatient (IN) | payer OTHER ==
[2019-07-14 10:29] VITALS: BMI 23.7
[2019-07-14 11:33] LABS: Hemoglobin 13.5 g/dL (14.0-18.0); Mean Corpuscular HGB CONC 33.8 g/dL (32.0-36.0); Mean Corpuscular Hemoglobin 35.7 pg (27.0-31.0); Mean Platelet Volume 7.8 fL (7.4-10.4); Platelet Count 164 thou/uL (130-400); RBC Distribution Width 13.7 % (11.5-14.5); Red Blood Cell (RBC) Count 3.78 mill/uL (4.70-6.10); White Blood Cell (WBC) Count 6.3 thou/uL (4.8-10.8)
[2019-07-14 11:36] LABS: INR-International Normal Ratio 0.9; PTT 27.5 sec (22.9-36.1); Prothrombin Time 12.1 sec (12.0-14.7)
[2019-07-14 12:00] LABS: Anion Gap 14 mmol/L (10-20); BUN (Urea Nitrogen) 10 mg/dL (8.4-25.7); Calc. Creatinine Clearance 0 mL/min (70-130); Calcium 8.9 mg/dL (7.8-10.44); Carbon Dioxide 25 mmol/L (23-31); Chloride 102 mmol/L (98-107); Estimated GFR-MDRD 78; Glucose 132 mg/dL (80-115); Potassium 3.9 mmol/L (3.5-5.1); Sodium 137 mmol/L (136-145)
[2019-07-18] MEDS ORDERED: Bupivacaine 0.25% HCL 30 ML VIAL ONE ×3 (06:52→13:03)
[2019-07-18] MEDS ORDERED: EPINEPHrine 1 MG/ML AMP ONE ×2 (06:52→07:35)
[2019-07-18] MEDS ORDERED: Midazolam HCl 2 mg/2 ml Vial ONE (06:56)
[2019-07-18] MEDS ORDERED: Fentanyl 100 MCG/2 ML VIAL ONE ×5 (06:56→12:51)
[2019-07-18] MEDS ORDERED: HYDROmorphone 0.5 MG/0.5 ML SYRINGE ONE (07:24)
[2019-07-18] MEDS ORDERED: Rocuronium Bromide 10 MG/ML (10ML VIAL) ONE (09:45)
[2019-07-18] MEDS ORDERED: Glycopyrrolate 0.2 MG/ML 5 ML SYRINGE ONE (09:45)
[2019-07-18] MEDS ORDERED: Lidocaine 1% PF 5 ML VIAL ONE (09:45)
[2019-07-18] MEDS ORDERED: Metoprolol Tartrate 5 MG/5 ML VIAL ONE (09:45)
[2019-07-18] MEDS ORDERED: Ondansetron PF 4 MG/2 ML Vial ONE (09:45)
[2019-07-18] MEDS ORDERED: Dexamethasone 20 MG/5 ML VIAL ONE (09:45)
[2019-07-18] MEDS ORDERED: Vecuronium 10 MG VIAL ONE (09:45)
[2019-07-18] MEDS ORDERED: EPHEDRINE 25 MG/5 ML SYRINGE ONE (09:45)
[2019-07-18] MEDS ORDERED: Lidocaine 1.5% w/Epi 1:200K 30 ML VIAL (Epid Use) ONE (09:45)
[2019-07-18] MEDS ORDERED: PHENYLEPHRINE-NS 100 MCG/ML 10 ML SYRINGE ONE ×2 (09:45→11:41)
[2019-07-18] MEDS ORDERED: PROPOFOL 200 MG/20 ML VIAL ONE (09:45)
[2019-07-18] MEDS ORDERED: PACU-Morphine 4MG/ML VIAL SLOW IVP PRN (11:23)
[2019-07-18] MEDS ORDERED: Promethazine HCl 25 MG/ML VIAL SLOW IVP PRN (11:23)
[2019-07-18] MEDS ORDERED: Promethazine HCl 25 MG/ML VIAL IM PRN ×2 (11:23→14:15)
[2019-07-18] MEDS ORDERED: Ondansetron HCl/PF 4 MG/2 ML Vial IVP PRN (11:23)
[2019-07-18] MEDS ORDERED: HYDROmorphone 2 MG/ML VIAL SLOW IVP PRN (11:23)
[2019-07-18] MEDS ORDERED: Furosemide 20 MG/2 ML VIAL ONE (11:25)
[2019-07-18 12:14] LABS: Actual Bicarbonate (HCO3a) 21.1 mEq/L (22-28); Base Excess (BEa) -5.2 mEq/L (-2.0 to +3.0); CO2 Tension 44.4 mmHg (35.0-45.0); Calcium, Ionized (arterial) 1.08 mmol/L (1.12-1.30); Carboxyhemoglobin (COHb) 2.4 gm% (0.0-3.0); Hemoglobin (Hb) 11.1 g/dL (14.0-18.0); Potassium - ABG Lab 3.76 mmol/L (3.70-5.30)
[2019-07-18] MEDS ORDERED: Sodium Chloride For Inhalation 0.9% 3 ML NEB ONE (13:02)
[2019-07-18] MEDS ORDERED: hydrALAZINE 20 MG/ML VIAL SLOW IVP PRN (13:24)
[2019-07-18] MEDS ORDERED: Zolpidem Tartrate 5 MG TAB PO PRN ×2 (13:24→14:15)
[2019-07-18] MEDS ORDERED: diphenhydrAMINE 50 MG/ML VIAL IVP PRN ×2 (13:24→14:15)
[2019-07-18] MEDS ORDERED: Acetaminophen 500 MG TAB PO PRN (13:24)
[2019-07-18] MEDS ORDERED: Ketorolac Tromethamine 30 MG/ML VIAL IVP PRN (13:24)
[2019-07-18] MEDS ORDERED: Enoxaparin Sodium 40 MG/0.4 ML SYRINGE SC SCH (13:45)
[2019-07-18] MEDS ORDERED: Docusate 100 MG CAP PO SCH (13:45)
[2019-07-18] MEDS ORDERED: Famotidine/PF 20 mg/2ml Vial SLOW IVP SCH (13:45)
[2019-07-18] MEDS ORDERED: traMADol HCl 50 MG TAB PO PRN ×2 (14:15)
[2019-07-18] MEDS ORDERED: Promethazine HCl 25 MG SUPP PR PRN (14:15)
[2019-07-18] MEDS ORDERED: Fentanyl 5 mcg/Bup 0.075% Cadd 100 ML EPIDURAL SCH (14:15)
[2019-07-18] MEDS ORDERED: diphenhydrAMINE 25 MG CAP PO PRN (14:15)
[2019-07-18] MEDS ORDERED: Hydrocerin (Eucerin) Cream 120 gm Jar TOP PRN (14:15)
[2019-07-18] MEDS ORDERED: HYDROcodone/Acetaminophen 5/325 mg Tablet PO PRN (14:15)
[2019-07-18] MEDS ORDERED: diphenhydrAMINE 50 MG/ML VIAL IM PRN (14:15)
[2019-07-18] MEDS ORDERED: Naloxone HCl 0.4 mg/ml Vial IVP PRN (14:15)
[2019-07-18] MEDS ORDERED: Naloxone HCl 0.4 mg/ml Vial IV PRN (14:15)
[2019-07-18] MEDS ORDERED: Ondansetron PF 4 MG/2 ML Vial IVP PRN (14:15)
--- NOTE | 2019-07-18 14:28 | OP ---
DATE OF PROCEDURE: 07/18/2019 PREOPERATIVE DIAGNOSIS: Malignant tumor, bladder. POSTOPERATIVE DIAGNOSIS: Malignant tumor, bladder. PROCEDURE PERFORMED: Radical cystoprostatectomy with ileal conduit and bilateral pelvic lymph node dissection. ANESTHESIA: General, epidural. COMPLICATIONS: None. ESTIMATED BLOOD LOSS: 800. IV FLUIDS: 1500. SPECIMEN: Bladder and prostate, right and left pelvic lymph nodes, right and left distal ureter were frozen. DESCRIPTION OF PROCEDURE: After informed consent, the patient was taken to the operating room, transferred to the table under his own power. Anesthesia was established. A time-out was performed, showing the correct patient, site, and procedure. Preoperative antibiotics were administered. He was prepped and draped in the supine position. I began by placing an 18-Maltese Nazario catheter under sterile conditions. 10 mL were instilled in balloon. I then made a midline incision from the pubic symphysis to about 3 fingerbreadths above the umbilicus. This was carried down to fascia with electrocautery. Fascia was carefully entered beginning with the pelvis and the space of retzius bluntly developed. I then carefully opened the peritoneum and took down the lateral attachments of the bladder to the peritoneum. The Bookwalter was deployed and the bowel packed to the left side of the abdomen. The right ureter was easily identified, dissected down towards the UVJ. I then placed a large clamp at the distal most aspect of the uterus that was able to access and transected the ureter. The very distal aspect of the remaining ureter was sent for frozen sections, which returned negative. The bowel was then packed towards the right side of the abdomen and the left ureter also dissected out, transected, and frozen section sent from the distal aspect, which was also negative. The peritoneum was incised over the plane line between the bladder and rectum. The bladder pedicles were taken down. The LigaSure was used for this, however, I did encounter fairly significant bleeding mostly on the left side requiring suture ligation. The prostate was then bluntly dissected and the DVC taken down with the LigaSure. The anterior aspect of the urethra was opened and the catheter pulled through this, eventually being transected and using for caudal traction. I then transected through the posterior aspect of the urethra and bluntly developed the posterior plane of the prostate. Prostate pedicles were taken down with a right angle clamp and electrocautery. The remaining pedicles at the posterior aspect of the prostate leading towards the bladder pedicles were then bluntly developed and taken down with LigaSure. The specimen was then removed in its entirety and passed off. The DVC was oversewn with 2-0 Monocryl suture on a UR6 needle. The right pelvic lymph nodes were removed beginning at the external iliac vein, carried down posteriorly towards the nerve and superiorly to the bifurcation of the iliac vessels into external and internal. This entire lymph node packet was removed and passed off the specimen. The same procedure was repeated on the left side. I then identified the ileocecal junction and traced the ileum back 10 to 15 cm. I then selected an appropriate section of the ileum for the conduit. The vasculature was controlled with LigaSure and then the HUI stapler used to transect the bowel. The ileostomy was performed with two further HUI staple loads. Mesenteric defect was then reapproximated with suture. The conduit was then positioned towards the right side of the abdomen. The left ureter was brought underneath the sigmoid colon. The left anastomosis was performed by first spatulating the distal left ureter, placing stay sutures and passing the stent, which I was able to palpate well towards the left renal pelvis. An appropriate opening at the base of the conduit was made and the stay sutures placed through here. The stent was then passed into the conduit and out through the distal end of the conduit. Anastomosis was then performed in a running fashion. The same procedure was repeated on the right side. Chromic suture was passed through the ureter and the stent holding in position on both sides. In appropriate site, the right upper quadrant was identified and a segment of the skin was removed for the stoma. Fascia was opened in a cruciate formation and the opening developed. The conduit was then passed through this and quadrant sutures were placed through fascia, holding this in place. The stoma was then matured with 3-0 Vicryl suture. The abdomen and pelvis were then copiously irrigated and a 10-Maltese drain placed through the left lower quadrant. The fascia was closed in a running fashion with 0 PDS suture. Skin was closed with dayanna. The urostomy appliance was placed followed by an island dressing for the midline incision and a drain sponge over the 10-Maltese drain. The patient was then awoken from anesthesia, transferred back to his hospital bed and taken to PACU in stable condition, where he will be admitted to the floor. Job ID: [id number] [facility]
--- NOTE | 2019-07-18 16:37 | EKG ---
Test Reason : S/P FISTULA Blood Pressure : / mmHG Vent. Rate : 099 BPM Atrial Rate : 099 BPM P-R Int : 134 ms QRS Dur : 080 ms QT Int : 376 ms P-R-T Axes : 070 064 074 degrees QTc Int : 482 ms Normal sinus rhythm Prolonged QT Abnormal ECG Confirmed by PANTERA OWENS ([id number]) on 07/18/2019 4:37:25 PM Referred By: MAGALIE Confirmed By:PANTERA OWENS
[2019-07-18] MEDS: D5 1/2 NS w/20 mEq KCL 1,000 ML IV SCH (17:41)
[2019-07-18] MEDS: HYDROcodone/Acetaminophen 5/325 mg Tablet PO PRN (18:27)
[2019-07-18] MEDS: Docusate 100 MG CAP PO SCH (21:07)
[2019-07-18] MEDS: Famotidine/PF 20 mg/2ml Vial SLOW IVP SCH (21:07)
[2019-07-19] MEDS: HYDROcodone/Acetaminophen 5/325 mg Tablet PO PRN (02:00)
[2019-07-19] MEDS: D5 1/2 NS w/20 mEq KCL 1,000 ML IV SCH ×2 (03:48→06:38)
[2019-07-19 06:36] LABS: Anion Gap 12 mmol/L (10-20); BUN (Urea Nitrogen) 22 mg/dL (8.4-25.7); Calc. Creatinine Clearance 60 mL/min (70-130); Calcium 7.3 mg/dL (7.8-10.44); Carbon Dioxide 23 mmol/L (23-31); Chloride 101 mmol/L (98-107); Estimated GFR-MDRD 49; Glucose 158 mg/dL (80-115); Potassium 5.6 mmol/L (3.5-5.1); Sodium 130 mmol/L (136-145)
[2019-07-19 06:38] LABS: #Lymphocytes 0.8 thou/uL (1.20-3.40); #Monocytes 0.8 thou/uL (0.11-0.59); #Neutrophils 10.8 thou/uL (1.40-6.50); %Basophils 0.1 % (0.0-1.0); %Eosinophils 0.1 % (0.0-10.0); %Lymphocytes 6.6 % (21.0-51.0); %Monocytes 6.7 % (0.0-10.0); %Neutrophils 86.5 % (42.0-75.0); Hemoglobin 9.4 g/dL (14.0-18.0); Mean Corpuscular HGB CONC 34.2 g/dL (32.0-36.0); Mean Corpuscular Hemoglobin 36.4 pg (27.0-31.0); Mean Platelet Volume 7.8 fL (7.4-10.4); Platelet Count 102 thou/uL (130-400); RBC Distribution Width 13.4 % (11.5-14.5); Red Blood Cell (RBC) Count 2.57 mill/uL (4.70-6.10); White Blood Cell (WBC) Count 12.4 thou/uL (4.8-10.8)
[2019-07-19] MEDS: cefTRIAXone\\ROCEPHIN 1 GM in Sodium Chloride 0.9% 100 ML IVPB SCH (06:38)
[2019-07-19 06:39] LABS: MDiff Complete? YES; Macrocytosis SLIGHT = 6-15 cells (100X) (0-5/hpf); Platelet Morphology Comment Appears Decreased
[2019-07-19] MEDS: Famotidine/PF 20 mg/2ml Vial SLOW IVP SCH ×2 (09:17→21:08)
[2019-07-19] MEDS: Docusate 100 MG CAP PO SCH ×2 (09:17→21:08)
[2019-07-19] MEDS: Enoxaparin Sodium 40 MG/0.4 ML SYRINGE SC SCH (09:18)
[2019-07-19] MEDS: Sodium Chloride 0.45% 1,000 ML IV SCH ×2 (09:21→16:47)
[2019-07-19] MEDS: Calcium Gluconate 4.6 MEQ in Sodium Chloride 0.9% 100 ML IVPB SCH (10:21)
[2019-07-19] MEDS: fentaNYL Citrate/PF 2,000 MCG in Sodium Chloride 0.9% 60 ML IV PRN (12:10)
[2019-07-19 12:54] LABS: Anion Gap 12 mmol/L (10-20); BUN (Urea Nitrogen) 20 mg/dL (8.4-25.7); Calc. Creatinine Clearance 69 mL/min (70-130); Calcium 7.6 mg/dL (7.8-10.44); Carbon Dioxide 25 mmol/L (23-31); Chloride 99 mmol/L (98-107); Estimated GFR-MDRD 57; Glucose 110 mg/dL (80-115); Potassium 4.5 mmol/L (3.5-5.1); Sodium 131 mmol/L (136-145)
--- NOTE | 2019-07-19 13:26 | PRG ---
DATE OF SERVICE: 07/19/2019 SUBJECTIVE: No acute events overnight. He is having a slight cough, reporting nasal drainage over the past few days. Pain control is fair at best overnight with his epidural. He is having significant pain with coughing or deep breathing. He denies chest pains, nausea, or fevers. OBJECTIVE: VITAL SIGNS: Afebrile. Vitals are stable. Urine output 575 overnight, and drained 35 mL. GENERAL: No acute distress, conversant. CHEST: Unlabored breathing. Symmetric chest expansion. ABDOMEN: Soft, appropriately tender, conduit healthy with stents in place, dripping clear urine. EXTREMITIES: SCDs in place. No peripheral edema. LABORATORY DATA: Reviewed. White count 12.4, hemoglobin 9.4, creatinine 1.47. Sodium is 130, potassium of 5.6, calcium 7.3. ASSESSMENT AND PLAN: 1. Postoperative day 1, radical cystoprostatectomy with pelvic lymph node dissection and ileal conduit. 2. Routine postop care, pain control, IV hydration, full liquid diet, SCDs, Lovenox for deep venous thrombosis prophylaxis, gastrointestinal prophylaxis, incentive spirometry. 3. Physical therapy and wound/ostomy care ordered. 4. Hyperkalemia - changing IV fluids. We will repeat at noon. 5. Hypocalcemia, replacing. 6. Hyponatremia. Repeat electrolytes at noon. Job ID: [id number]
[2019-07-19] MEDS: Sodium Chloride 0.9% 1,000 ML IV SCH (19:25)
[2019-07-20] MEDS: Sodium Chloride 0.9% 1,000 ML IV SCH ×4 (03:18→20:00)
[2019-07-20] MEDS: cefTRIAXone\\ROCEPHIN 1 GM in Sodium Chloride 0.9% 100 ML IVPB SCH (06:18)
[2019-07-20 06:20] LABS: #Lymphocytes 0.9 thou/uL (1.20-3.40); #Monocytes 0.6 thou/uL (0.11-0.59); %Basophils 0.2 % (0.0-1.0); %Eosinophils 0.6 % (0.0-10.0); %Lymphocytes 11.9 % (21.0-51.0); %Monocytes 8.5 % (0.0-10.0); %Neutrophils 78.9 % (42.0-75.0); Hemoglobin 7.2 g/dL (14.0-18.0); Mean Corpuscular HGB CONC 33.2 g/dL (32.0-36.0); Mean Corpuscular Hemoglobin 34.9 pg (27.0-31.0); Platelet Count 81 thou/uL (130-400); RBC Distribution Width 13.2 % (11.5-14.5); Red Blood Cell (RBC) Count 2.07 mill/uL (4.70-6.10); White Blood Cell (WBC) Count 7.6 thou/uL (4.8-10.8)
[2019-07-20 06:34] LABS: Anion Gap 9 mmol/L (10-20); BUN (Urea Nitrogen) 12 mg/dL (8.4-25.7); Calc. Creatinine Clearance 85 mL/min (70-130); Calcium 7.2 mg/dL (7.8-10.44); Carbon Dioxide 26 mmol/L (23-31); Chloride 99 mmol/L (98-107); Estimated GFR-MDRD 72; Glucose 94 mg/dL (80-115); Potassium 4.2 mmol/L (3.5-5.1); Sodium 130 mmol/L (136-145)
[2019-07-20] MEDS: fentaNYL Citrate/PF 2,000 MCG in Sodium Chloride 0.9% 60 ML IV PRN (08:29)
[2019-07-20] MEDS: Docusate 100 MG CAP PO SCH ×2 (08:30→19:59)
[2019-07-20] MEDS: Famotidine/PF 20 mg/2ml Vial SLOW IVP SCH ×2 (08:30→19:59)
[2019-07-20] MEDS: Enoxaparin Sodium 40 MG/0.4 ML SYRINGE SC SCH (08:30)
[2019-07-20] MEDS ORDERED: Calcium Gluconate 4.6 MEQ in Sodium Chloride 0.9% 100 ML IVPB SCH (08:47)
[2019-07-20] MEDS ORDERED: Furosemide 20 MG/2 ML VIAL IVP SCH (09:00)
--- NOTE | 2019-07-20 13:33 | PRG ---
DATE OF SERVICE: 07/20/2019 SUBJECTIVE: No acute events overnight. The patient did have a bout of emesis yesterday afternoon, but no associated nausea and no recurrence overnight or this morning. His pain is much better controlled using JAVASCRIPT ENGINEER today. He denies fevers, nausea, chest pain, or difficulty breathing. OBJECTIVE: VITAL SIGNS: Afebrile, mild hypotension this morning. Otherwise, vitals stable. Excellent urine output drain 205. LUNGS: Unlabored breathing. Symmetric chest expansion. GENERAL: No acute distress. Conversant. ABDOMEN: Soft, nondistended, appropriately tender. Incision without signs of infection, urostomy healthy with stents in place dripping clear urine. EXTREMITIES: Without clubbing, cyanosis, or edema. LABORATORY DATA: Creatinine improved to 1.04 this morning, calcium 7.2. Hemoglobin 7.2 today. ASSESSMENT AND PLAN: 1. Postop day 2, radical cystoprostatectomy with ileal conduit and bilateral pelvic lymph node dissection. 2. Routine postop care: Pain control, full liquid diet, out of bed and ambulate, incentive spirometry, deep venous thrombosis prophylaxis, gastrointestinal prophylaxis. 3. Acute blood loss anemia-transfuse 2 units with Lasix afterwards and repeat CBC after his transfusion. This may be dilutional after blood loss intraoperatively. 4. Hypocalcemia. Calcium gluconate administered this morning. Job ID: [id number]
[2019-07-20] MEDS: Calcium Gluconate 4.6 MEQ in Sodium Chloride 0.9% 100 ML IVPB SCH (17:15)
[2019-07-20 21:13] LABS: #Lymphocytes 1.1 thou/uL (1.20-3.40); #Monocytes 0.6 thou/uL (0.11-0.59); #Neutrophils 5.9 thou/uL (1.40-6.50); %Basophils 0.2 % (0.0-1.0); %Eosinophils 0.1 % (0.0-10.0); %Lymphocytes 14.5 % (21.0-51.0); %Monocytes 7.3 % (0.0-10.0); %Neutrophils 77.8 % (42.0-75.0); Hemoglobin 9.4 g/dL (14.0-18.0); Mean Corpuscular HGB CONC 35.2 g/dL (32.0-36.0); Mean Corpuscular Hemoglobin 34.8 pg (27.0-31.0); Mean Corpuscular Volume 98.7 fL (78.0-98.0); Mean Platelet Volume 7.3 fL (7.4-10.4); Platelet Count 90 thou/uL (130-400); RBC Distribution Width 15.2 % (11.5-14.5); Red Blood Cell (RBC) Count 2.71 mill/uL (4.70-6.10); White Blood Cell (WBC) Count 7.5 thou/uL (4.8-10.8)
[2019-07-21 05:18] LABS: #Lymphocytes 1.3 thou/uL (1.20-3.40); #Monocytes 0.7 thou/uL (0.11-0.59); #Neutrophils 4.9 thou/uL (1.40-6.50); %Basophils 0.4 % (0.0-1.0); %Eosinophils 0.3 % (0.0-10.0); %Lymphocytes 18.5 % (21.0-51.0); %Monocytes 9.5 % (0.0-10.0); %Neutrophils 71.3 % (42.0-75.0); Hemoglobin 8.7 g/dL (14.0-18.0); Mean Corpuscular HGB CONC 32.9 g/dL (32.0-36.0); Mean Corpuscular Hemoglobin 32.4 pg (27.0-31.0); Mean Corpuscular Volume 98.6 fL (78.0-98.0); Mean Platelet Volume 7.6 fL (7.4-10.4); Platelet Count 104 thou/uL (130-400); RBC Distribution Width 15.1 % (11.5-14.5); Red Blood Cell (RBC) Count 2.68 mill/uL (4.70-6.10); White Blood Cell (WBC) Count 6.9 thou/uL (4.8-10.8)
[2019-07-21 05:38] LABS: Anion Gap 11 mmol/L (10-20); BUN (Urea Nitrogen) 10 mg/dL (8.4-25.7); Calc. Creatinine Clearance 95 mL/min (70-130); Calcium 8.2 mg/dL (7.8-10.44); Carbon Dioxide 30 mmol/L (23-31); Chloride 96 mmol/L (98-107); Estimated GFR-MDRD 82; Glucose 87 mg/dL (80-115); Potassium 3.5 mmol/L (3.5-5.1); Sodium 133 mmol/L (136-145)
[2019-07-21] MEDS: cefTRIAXone\\ROCEPHIN 1 GM in Sodium Chloride 0.9% 100 ML IVPB SCH (06:43)
[2019-07-21] MEDS: Docusate 100 MG CAP PO SCH ×2 (09:28→21:43)
[2019-07-21] MEDS: Famotidine/PF 20 mg/2ml Vial SLOW IVP SCH ×2 (09:29→21:43)
[2019-07-21] MEDS: Enoxaparin Sodium 40 MG/0.4 ML SYRINGE SC SCH (09:29)
[2019-07-21] MEDS ORDERED: traMADol HCl 50 MG TAB PO PRN ×2 (10:08)
[2019-07-21] MEDS ORDERED: HYDROcodone/Acetaminophen 5/325 mg Tablet PO PRN ×2 (10:09)
[2019-07-21] MEDS ORDERED: Bisacodyl 10 MG SUPP PR PRN (11:47)
--- NOTE | 2019-07-21 15:33 | PRG ---
DATE OF SERVICE: 07/21/2019 SUBJECTIVE: No problems overnight. He is tolerating regular diet today. He is no longer using the AIR CONDITIONING INSTALLER SUPERVISOR, managing his pain only with Toradol and Tylenol. He denies fevers, nausea, vomiting, chest pains, or difficulty breathing. No bowel function yet. OBJECTIVE: VITAL SIGNS: Afebrile. Vitals are stable. Urine output 5900. Drainage 175. GENERAL: No acute distress. The patient is wearing his street clothes and walking around the surgical floor. LUNGS: Unlabored breathing. Symmetric chest expansion. HEART: Regular rate and rhythm. ABDOMEN: Soft, appropriately tender, nondistended. GENITOURINARY: Urostomy healthy with stents draining clear urine. EXTREMITIES: Lower extremities without clubbing, cyanosis, or edema. LABORATORY DATA: Lab work reviewed. Hemoglobin alek yesterday after 2 units from 7.2 to 9.4 and this morning is 8.7. IV fluids have been turned off this morning. Hematocrit is stable from yesterday at 26.5. Creatinine remained stable at 0.93. ASSESSMENT AND PLAN: Postoperative day 3, radical cystoprostatectomy with ileal conduit and bilateral pelvic lymph node dissection. Continue routine postoperative care: Gastrointestinal and deep venous thrombosis prophylaxis, advancing diet as tolerated, ambulate, incentive spirometry, pain control. Awaiting bowel function. Repeat CBC in the morning to ensure stability. If the patient is having bowel function overnight, he may discharge as early as tomorrow. Job ID: [id number]
[2019-07-21] MEDS: Sodium Chloride 0.9% 1,000 ML IV SCH (18:03)
[2019-07-22] MEDS: Sodium Chloride 0.9% 1,000 ML IV SCH (04:24)
[2019-07-22 06:10] LABS: #Basophils 0.1 thou/uL (0.0-0.2); #Lymphocytes 1.2 thou/uL (1.20-3.40); #Monocytes 0.8 thou/uL (0.11-0.59); #Neutrophils 4.7 thou/uL (1.40-6.50); %Basophils 0.9 % (0.0-1.0); %Eosinophils 0.1 % (0.0-10.0); %Lymphocytes 17.5 % (21.0-51.0); %Monocytes 11.3 % (0.0-10.0); %Neutrophils 70.2 % (42.0-75.0); Hemoglobin 9.3 g/dL (14.0-18.0); Mean Corpuscular HGB CONC 35.2 g/dL (32.0-36.0); Mean Corpuscular Hemoglobin 34.5 pg (27.0-31.0); Mean Platelet Volume 7.4 fL (7.4-10.4); Platelet Count 127 thou/uL (130-400); RBC Distribution Width 14.6 % (11.5-14.5); Red Blood Cell (RBC) Count 2.69 mill/uL (4.70-6.10); White Blood Cell (WBC) Count 6.6 thou/uL (4.8-10.8)
[2019-07-22 06:28] LABS: Anion Gap 14 mmol/L (10-20); BUN (Urea Nitrogen) 9 mg/dL (8.4-25.7); Calc. Creatinine Clearance 89 mL/min (70-130); Calcium 8.8 mg/dL (7.8-10.44); Carbon Dioxide 27 mmol/L (23-31); Chloride 99 mmol/L (98-107); Estimated GFR-MDRD 77; Glucose 95 mg/dL (80-115); Potassium 3.4 mmol/L (3.5-5.1); Sodium 137 mmol/L (136-145)
[2019-07-22] MEDS: Enoxaparin Sodium 40 MG/0.4 ML SYRINGE SC SCH (08:55)
[2019-07-22] MEDS: Docusate 100 MG CAP PO SCH (08:55)
[2019-07-22] MEDS: Famotidine/PF 20 mg/2ml Vial SLOW IVP SCH (08:55)
[2019-07-22 11:08] VITALS: BP 149/68; TEMP 97.9
--- NOTE | 2019-07-22 23:02 | DIS ---
DATE OF ADMISSION: 07/18/2019 DATE OF DISCHARGE: 07/22/2019 CHIEF COMPLAINT: Bladder cancer. HOSPITAL COURSE: Patient underwent radical cystoprostatectomy with ileal conduit, bilateral pelvic lymph node dissection on July 18, 2019. There were no surgical complications. By postop day 2, his hemoglobin had dropped to 7.2, at which point, he received 2 units of packed red blood cells for acute blood loss anemia with posttransfusion hemoglobin 9.4. His creatinine remained stable throughout his stay. His pain was initially managed with epidural. However, this seemed to be functioning poorly and eventually had to be removed, at which point, he was transitioned to VIDEO CLERK for about 36 hours and then transitioned to oral medications. However, he did not require their use. By postop day 4, he was ambulating, tolerating regular diet, having bowel movements, and having no discomfort. He was deemed stable for discharge home at that point. DISCHARGE DIAGNOSES: 1. Malignant tumor, bladder. 2. Nicotine dependence. POSTOPERATIVE PLAN: Follow up on July 30 for staple removal. Discharge instructions can be found on his discharge sheet with his chart. Job ID: [id number]
== END 2019-07-22 12:00 | disposition home or self-care (01) | DRG 654 ==
LOC: SURG A 07-18 05:33
PROVIDERS: ADMIT Urology; ATTEND Urology
PROC: 0TTB0ZZ Resection of Bladder, Open Approach (ICD-10-PCS; principal; 2019-07-18)
PROC: 0VT00ZZ Resection of Prostate, Open Approach (ICD-10-PCS; 2019-07-18)
PROC: 07TC0ZZ Resection of Pelvis Lymphatic, Open Approach (ICD-10-PCS; 2019-07-18)
PROC: 0T180ZC Bypass Bilateral Ureters to Ileocutaneous, Open Approach (ICD-10-PCS; 2019-07-18)
PROC: 30233N1 Transfusion of Nonautologous Red Blood Cells into Peripheral Vein, Percutaneous Approach (ICD-10-PCS; 2019-07-20)
DX: C67.2 Malignant neoplasm of lateral wall of bladder (principal); E87.1 Hypo-osmolality and hyponatremia; D62 Acute posthemorrhagic anemia; F17.210 Nicotine dependence, cigarettes, uncomplicated; E87.5 Hyperkalemia; E83.51 Hypocalcemia; J30.2 Other seasonal allergic rhinitis; N40.0 Benign prostatic hyperplasia without lower urinary tract symptoms; Z79.899 Other long term (current) drug therapy
CPT/HCPCS: 36415; 36430; 80048; 82805; 85025; 85027; 85610; 85730; 86850; 86900; 86901; 88305; 88307; 88309; 88331; 93005; 93010; J0171; J0694; J0696; J1100; J1170; J1650; J1885; J1940; J2001; J2250; J2405; J2704; J3010; J3480; J3490; P9016; S0020; S0028

== ENCOUNTER 2019-08-03 17:03 | Inpatient (IN) | payer OTHER, SELFPAY ==
[2019-08-03 17:41] LABS: #Basophils 0.1 thou/uL (0.0-0.2); #Monocytes 0.9 thou/uL (0.11-0.59); #Neutrophils 9.3 thou/uL (1.40-6.50); %Basophils 0.6 % (0.0-1.0); %Eosinophils 0.1 % (0.0-10.0); %Lymphocytes 9.2 % (21.0-51.0); %Monocytes 7.8 % (0.0-10.0); %Neutrophils 82.4 % (42.0-75.0); Hemoglobin 10.9 g/dL (14.0-18.0); Mean Corpuscular HGB CONC 34.4 g/dL (32.0-36.0); Mean Corpuscular Hemoglobin 32.5 pg (27.0-31.0); Mean Corpuscular Volume 94.5 fL (78.0-98.0); Mean Platelet Volume 7.3 fL (7.4-10.4); Platelet Count 240 thou/uL (130-400); RBC Distribution Width 15.5 % (11.5-14.5); Red Blood Cell (RBC) Count 3.37 mill/uL (4.70-6.10); White Blood Cell (WBC) Count 11.2 thou/uL (4.8-10.8)
[2019-08-03 18:02] LABS: ALT (SGPT) 11 U/L (8-55); AST (SGOT) 14 U/L (5-34); Albumin 3.8 g/dL (3.4-4.8); Alkaline Phosphatase 68 U/L (40-110); Anion Gap 14 mmol/L (10-20); BUN (Urea Nitrogen) 28 mg/dL (8.4-25.7); Bilirubin, Total 0.7 mg/dL (0.2-1.2); Calc. Creatinine Clearance 0 mL/min (70-130); Calcium 9.1 mg/dL (7.8-10.44); Carbon Dioxide 24 mmol/L (23-31); Chloride 94 mmol/L (98-107); Estimated GFR-MDRD 38; Globulin 4.3 g/dL (2.4-3.5); Glucose 117 mg/dL (80-115); Protein, Total 8.1 g/dL (5.8-8.1); Sodium 128 mmol/L (136-145)
[2019-08-03 18:09] LABS: Bacteria/HPF 4+ HPF (None Seen); Bilirubin Negative (Negative); Blood, Urine 3+ (Negative); Clarity Turbid (Clear); Glucose, Urine (Dipstick) Normal (Negative); Leukocyte 500 Leu/uL (Negative); Nitrite Negative (Negative); Protein, Urine (Dipstick) 100 mg/dL (Neg-Trace); RBC/HPF Greater than 50 HPF (0-3); Squamous Epithelial 0-3 HPF (0-3); Urobilinogen Normal mg/dL (Less than 2); WBC/HPF Greater than 50 HPF (0-3)
[2019-08-03] MEDS ORDERED: cefTRIAXone\\ROCEPHIN 1 GM VIAL ONE (18:43)
[2019-08-03 18:59] LABS: Lipase 17 U/L (8-78)
[2019-08-03] MEDS ORDERED: Vancomycin 1 GM/200 ML BAG ONE (19:52)
[2019-08-03] MEDS ORDERED: Ondansetron ODT 4 MG TAB SL PRN (20:47)
[2019-08-03] MEDS ORDERED: Ondansetron PF 4 MG/2 ML Vial IVP PRN ×2 (20:47→21:14)
[2019-08-03] MEDS ORDERED: Sodium Chloride 0.9% 1,000 ML IV SCH (20:47)
[2019-08-03] MEDS ORDERED: HYDROcodone/Acetaminophen 5/325 mg Tablet PO PRN ×3 (20:47→21:14)
[2019-08-03] MEDS ORDERED: Acetaminophen 325 MG TAB PO PRN ×2 (20:47→21:14)
[2019-08-03] MEDS ORDERED: cloNIDine 0.1 MG TAB PO PRN (21:14)
[2019-08-03] MEDS ORDERED: Labetalol HCl 100 MG/20 ML VIAL SLOW IVP PRN (21:14)
[2019-08-03] MEDS ORDERED: Guaifenesin DM 100-10/5 ML UDCUP PO PRN (21:14)
[2019-08-03] MEDS ORDERED: Promethazine HCl 12.5 MG in Sodium Chloride 0.9% 50 ML IVPB PRN (21:14)
[2019-08-03] MEDS ORDERED: hydrALAZINE 20 MG/ML VIAL SLOW IVP PRN (21:14)
[2019-08-03] MEDS ORDERED: Senokot S 8.6-50 MG TAB PO PRN (21:16)
[2019-08-03] MEDS ORDERED: Bisacodyl 5 MG TAB PO PRN (21:16)
[2019-08-03] MEDS ORDERED: Bisacodyl 10 MG SUPP PR PRN (21:16)
--- NOTE | 2019-08-03 21:38 | PDOC.HHP ---
Hospitalist HPI - History of Present Illness Fever, lethargy, dizziness History of Present Illness: Patient is a 64 year old male with PMH bladder tumor and radical cystoprostatectomy w/ ileal conduit and LN dissection 07/18/[address] Padilla who presents to ED for dizziness, fever, lethargy beginning Wednesday. He reports he was doing well until Wednesday, when he started by sleep all day and become groggy, his girlfriend took temperature and he reports it was 103F. After his surgery (bladder tumor and radical cystoprostatectomy w/ ileal conduit and LN dissection 07/18/[address] Padilla) he had some low hgb improved now but no other complications. He reports no issue with ileal conduit or ostomy bag. 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 He has been seen by Dr Du and was on chemotherapy, but has not been on chemotherapy since his surgery earlier this month. No rashes, no shortness of breath or chest pain, no syncope, no bleeding, no abdominal pain nausea or vomiting. In ED , WBC 11.2, hgb 10.9, Na 128, Cr 1.81, UA with positive signs of infection. vitals wnl. Patient admitted for further workup and care. Hospitalist ROS - Review of Systems Constitutional: reports: fever, chills, weakness, malaise Eyes: denies: pain, vision change, conjunctivae inflammation, eyelid inflammation, redness, other ENT: denies: ear pain, ear discharge, nose pain, nose discharge, nose congestion , mouth pain, mouth swelling, throat pain, throat swelling, other Respiratory: denies: cough, dry, shortness of breath, hemoptysis, SOB with excertion, pleuritic pain, sputum, wheezing, other Cardiovascular: reports: light headedness. denies: chest pain, palpitations, orthopnea, paroxysmal noc. dyspnea, edema, other Gastrointestinal: denies: nausea, vomiting, abdominal pain, diarrhea, constipation, melena, hematochezia, other Genitourinary: denies: dysuria, frequency, incontinence, hematuria, retention, other Musculoskeletal: denies: neck pain, shoulder pain, arm pain, back pain, hand pain, leg pain, foot pain, other Skin: denies: rash, lesions, fatimah, bruising, other Neurological: denies: weakness, numbness, incoordination, change in speech, confusion, seizures, other All other systems reviewed; all pertinent +/- noted in HPI/Subj Hospitalist History - Past Medical History Other Medical History: urothelial/transitional cell bladder cancer - Past Surgical History Other Surgical History: cystoscopy bladder tumor and radical cystoprostatectomy w/ ileal conduit and LN dissection 07/18/[address] Padilla - Family History Other Family History: father with prostate cancer - Social History Other Social History: 45 pack year smoking history, drinks 1-2 beers away - Exam General Appearance: NAD, awake alert Eye: PERRL, anicteric sclera ENT: normocephalic atraumatic, no oropharyngeal lesions, moist mucosa Neck: supple, symmetric, no JVD, no thyromegaly, no lymphadenopathy, no carotid bruit Heart: RRR, no murmur, no gallops, no rubs, normal peripheral pulses Respiratory: CTAB, no wheezes, no rales, no ronchi, normal chest expansion, no tachypnea, normal percussion Gastrointestinal: soft, non-tender, non-distended, normal bowel sounds, no palpable masses, no hepatomegaly, no splenomegaly, no bruit Gastrointestinal - other findings: ostomy in place, pink, no tenderness or erythema, bag full Extremities: no cyanosis, no clubbing, no edema Skin: normal turgor, no lesions, no rashes Neurological: cranial nerve grossly intact, normal sensation to touch, no weakness, no focal deficits, no new deficit Musculoskeletal: normal tone, normal strength, no muscle wasting Psychiatric: normal affect, normal behavior, A&O x 3 Hospitalist Results - Labs Result Diagrams: 08/03/19 17:28 08/03/19 17:28 Lab results: WBC 11.2 thou/uL (4.8-10.8) H 08/03/19 17:28 Hgb 10.9 g/dL (14.0-18.0) L 08/03/19 17: Hct 31.8 % (42.0-52.0) L 08/03/19 17:28 MCV 94.5 fL (78.0-98.0) 08/03/19 17:28 Plt Count 240 thou/uL (130-400) 08/03/19 17: Neutrophils % 82.4 % (42.0-75.0) H 08/03/19 17: Sodium 128 mmol/L (136-145) L 08/03/19 17: Potassium 4.0 mmol/L (3.5-5.1) 08/03/19 17: Chloride 94 mmol/L (98-107) L 08/03/19 17: Carbon Dioxide 24 mmol/L (23-31) 08/03/19 17: BUN 28 mg/dL (8.4-25.7) H 08/03/19 17: Creatinine 1.81 mg/dL (0.7-1.3) H 08/03/19 17: Glucose 117 mg/dL (80-115) H 08/03/19: Lactic Acid 0.9 mmol/L (0.5-2.2) 08/03/19 18: Calcium 9.1 mg/dL (7.8-10.44) 08/03/19: Total Bilirubin 0.7 mg/dL (0.2-1.2) 08/03/19: AST 14 U/L (5-34) 08/03/19: ALT 11 U/L (8-55) 08/03/19: Alkaline Phosphatase 68 U/L (40-110) 08/03/19: Serum Total Protein 8.1 g/dL (5.8-8.1) 08/03/19: Albumin 3.8 g/dL (3.4-4.8) 08/03/19: Lipase 17 U/L (8-78) 08/03/19: Urine Ketones Negative mg/dL (Negative) 08/03/19: Urine Blood 3+ (Negative) A 08/03/19: Urine Nitrite Negative (Negative) 08/03/19: Ur Leukocyte Esterase 500 Keshav/uL (Negative) A 08/03/19: Urine RBC Greater than 50 HPF (0-3) A 08/03/19 17: Urine WBC Greater than 50 HPF (0-3) A 08/03/19 17:32 Ur Squamous Epith Cells 0-3 HPF (0-3) 08/03/19: Urine Bacteria 4+ HPF (None Seen) A 08/03/19 17:32 Hospitalist H&P A/P - Plan Plan: Patient is a 64 year old male with PMH bladder tumor and radical cystoprostatectomy w/ ileal conduit and LN dissection 07/18/[address] Padilla who presents to ED for dizziness, fever, lethargy beginning Wednesday. # bladder tumor and radical cystoprostatectomy w/ ileal conduit and LN dissection 07/18/[address] Padilla - path report reviewed, appears to suggest negative margins mostly, with prostate cancer identified - consult Dr Padilla - sees Dr Du as outpatient # fever, lethargy, dizziness secondary to UTI and metabolic encephalopathy - admit to floor - empiric zosyn - follow cultures blood and urine for deescalation - vancomycin empiric, can likely deescalate soon - consider CT abdomen if no other source identified # CASANDRA # hyponatremia - these are new and likely represent dehydration and possible early sepsis - aggressive IVF, trend BMP daily # anemia - improved since prior discharge, trend CBC DVT ppx: lovenox, SCD GI ppx: H2RA
[2019-08-03] MEDS: Sodium Chloride 0.9% 1,000 ML IV SCH (22:00)
[2019-08-03] MEDS: Piperacillin/Tazobactam 3.375 GM in Sodium Chloride 0.9% 100 ML IVPB SCH (23:05)
[2019-08-04 00:35] VITALS: BMI 19.2
[2019-08-04] MEDS: Piperacillin/Tazobactam 3.375 GM in Sodium Chloride 0.9% 100 ML IVPB SCH ×4 (03:43→21:49)
[2019-08-04 04:11] LABS: #Lymphocytes 0.7 thou/uL (1.20-3.40); #Monocytes 0.7 thou/uL (0.11-0.59); #Neutrophils 5.9 thou/uL (1.40-6.50); %Basophils 0.4 % (0.0-1.0); %Eosinophils 0.1 % (0.0-10.0); %Lymphocytes 9.9 % (21.0-51.0); %Monocytes 9.4 % (0.0-10.0); %Neutrophils 80.2 % (42.0-75.0); Hemoglobin 9.2 g/dL (14.0-18.0); Mean Corpuscular Hemoglobin 32.3 pg (27.0-31.0); Mean Corpuscular Volume 95.1 fL (78.0-98.0); Mean Platelet Volume 7.5 fL (7.4-10.4); Platelet Count 204 thou/uL (130-400); RBC Distribution Width 15.3 % (11.5-14.5); Red Blood Cell (RBC) Count 2.84 mill/uL (4.70-6.10); White Blood Cell (WBC) Count 7.4 thou/uL (4.8-10.8)
[2019-08-04 04:33] LABS: Anion Gap 14 mmol/L (10-20); BUN (Urea Nitrogen) 23 mg/dL (8.4-25.7); Calc. Creatinine Clearance 53 mL/min (70-130); Carbon Dioxide 21 mmol/L (23-31); Chloride 101 mmol/L (98-107); Estimated GFR-MDRD 51; Glucose 101 mg/dL (80-115); Magnesium 1.4 mg/dL (1.6-2.6); Potassium 3.6 mmol/L (3.5-5.1); Sodium 132 mmol/L (136-145)
[2019-08-04] MEDS: Sodium Chloride 0.9% 1,000 ML IV SCH ×2 (06:17→15:00)
[2019-08-04] MEDS: Enoxaparin Sodium 40 MG/0.4 ML SYRINGE SC SCH (09:02)
--- NOTE | 2019-08-04 09:08 | CON ---
DATE OF CONSULTATION: 08/04/2019 REASON FOR CONSULT: Postop fever. CHIEF COMPLAINT: Fever over 103. HISTORY OF PRESENT ILLNESS: A 64-year-old male with a history of high-grade muscle invasive bladder cancer diagnosed on TURBT in December 2018, undergoing neoadjuvant chemotherapy and finally radical cystoprostatectomy with ileal conduit on July 17. He was discharged home postoperative day 4. He had done well, however, yesterday called our office in the afternoon reporting 2 days of malaise and finally developing fevers yesterday up to 103. He was directed to the emergency room and has been admitted for dehydration and sepsis. In speaking with him this morning , he reports that he is feeling much better than yesterday. He has not had any subjective fevers overnight. He denies chest pains, difficulty breathing, or abdominal pain. He has developed diarrhea overnight, having 4 loose bowel movements. No issues with diarrhea prior to this. He is not having any issues with his urostomy bag. He did remove the indwelling stents yesterday. PAST MEDICAL HISTORY: Bladder cancer as described above, nicotine dependence, prostate cancer. PAST SURGICAL HISTORY: TURBT, cystoprostatectomy. FAMILY HISTORY: Of prostate cancer in father. SOCIAL HISTORY: Current every day smoker. ALLERGIES: NO KNOWN ALLERGIES. REVIEW OF SYSTEMS: 10-point review of systems is negative except as mentioned above. PHYSICAL EXAMINATION: VITAL SIGNS: Overnight afebrile. Vitals stable. Urine output 1350. GENERAL: No acute distress, conversant. HEENT: Head; normocephalic and atraumatic. Eyes; extraocular movements intact. Sclerae nonicteric. NECK: Supple. Trachea midline. LUNGS: Unlabored breathing. Symmetric chest expansion. HEART: Regular rate and rhythm. ABDOMEN: Soft, nondistended, nontender. GENITOURINARY: Urostomy healthy draining clear urine. SKIN: Warm and dry. EXTREMITIES: Without clubbing, cyanosis, or edema. NEUROLOGIC: Alert and oriented x3. PSYCHIATRIC: Normal mood and affect. LABORATORY DATA: Reviewed. Hyponatremia has improved from 128 to 132 this morning. Creatinine has dropped from 1.81 to 1.40. White count was slightly elevated yesterday at 11.2 and 7.4 this morning, hemoglobin 9.2. ASSESSMENT AND PLAN: 1. Hospital day 2 postoperative fever, sepsis. 2. The likely diagnosis for him is either pyelonephritis or bacteremia. Unfortunately, in this instance, urinalysis and culture will be useless as far as diagnosing the exact issue. This will remain in empiric diagnosis if his blood cultures are negative. Given that he has a urostomy, his urinalysis will always have bacteria. 3. Clostridium difficile with next bowel movement. About 60 minutes spent in the patient care. Job ID: [id number] MTDD
[2019-08-04] MEDS ORDERED: Loperamide HCl 2 MG CAP PO PRN (16:41)
[2019-08-04] MEDS ORDERED: Loperamide HCl 2 MG CAP PO SCH (16:45)
--- NOTE | 2019-08-04 17:51 | PDOC.HOSPP ---
- Subjective Encounter Date: 08/04/19 Encounter Time: 17:45 Subjective: f f/u for fever, lethargy and suspected pyelonephritis on current Zosyn/ Vancomycin. + loose stools today with C. diff negative. - Objective Vital Signs & Weight: Vital Signs (12 hours) Temp Pulse Resp BP BP Pulse Ox 08/04/19 16:00 98.4 F 75 18 101/59 L 99 08/04/19 12:05 98.2 F 73 18 100/58 L 98 08/04/19 08:00 97.6 F 84 18 114/52 L 97 08/04/19 07:25 97 Weight Admit Weight 149 lb 11.2 oz Weight 149 lb 11.2 oz I&O: 08/03/19 08/04/19 08/05/19 06:59 06:59 06:59 Intake Total 1980 890 Output Total 1350 950 Balance 630 -60 Result Diagrams: 08/04/19 03:50 08/04/19 03:50 Additional Labs: Microbiology 08/04/19 08:18 Stool C. difficile GDH Antigen & Toxins - Final 08/03/19 18:26 Venous blood - Left Arm Blood Culture - Preliminary Specimen has been received and culture in progress. No Growth to date. 08/03/19 18:20 Venous blood - Right Arm Blood Culture - Preliminary Specimen has been received and culture in progress. No Growth to date. 08/03/19 17:32 Urine voided Urine Culture - Preliminary Laboratory Tests 08/03/19 08/03/19 08/04/19 17:28 17:28 03:50 WBC 11.2 H Hgb 10.9 L Neutrophils % 82.4 H 80.2 H Sodium 128 L BUN 28 H Creatinine 1.81 H Hospitalist ROS - Medication Medications: Active Medications Generic Name Dose Route Start Last Admin Trade Name Freq PRN Reason Stop Dose Admin Enoxaparin Sodium 40 mg 08/04/19 09:00 08/04/19 09:02 Lovenox SC 40 mg 0900 JANES Administration Piperacillin Sod/Tazobactam 100 mls @ 200 mls/hr 08/03/19 22:00 08/04/19 15: 54 Sod 3.375 gm/ Sodium Chloride IVPB 100 mls 0400,1000,1600,2200 JANES Administration Sodium Chloride 1,000 mls @ 125 mls/hr 08/03/19 21:30 08/04/19 15:00 Normal Saline 0.9% IV 1,000 mls .Q8H JANES Administration Loperamide HCl 4 mg 08/04/19 16:45 08/04/19 16:47 Imodium PO 08/04/19 18:45 4 mg NOW JANSE Administration Pantoprazole Sodium 40 mg 08/04/19 09:00 08/04/19 09:02 Protonix PO 40 mg DAILY JANES Administration - Exam General Appearance: NAD, awake alert Eye: PERRL, anicteric sclera ENT: normocephalic atraumatic, no oropharyngeal lesions Neck: supple, symmetric, no JVD, no thyromegaly, no lymphadenopathy Heart: RRR, no murmur, no gallops, no rubs, normal peripheral pulses Heart - other findings: S1, S2 Respiratory: CTAB, no wheezes, no rales, no ronchi, normal chest expansion Gastrointestinal: soft, non-tender, non-distended, normal bowel sounds Gastrointestinal - other findings: urostomy intact with clear urine Extremities: no cyanosis, no clubbing, no edema Skin: normal turgor, no lesions Neurological: cranial nerve grossly intact, no new deficit Musculoskeletal: normal tone, normal strength Psychiatric: normal affect, A&O x 3 Hosp A/P (1) Pyelonephritis Code(s): N12 - TUBULO-INTERSTITIAL NEPHRITIS, NOT SPCF ACUTE OR CHRONIC Status: Acute Plan: Suspected given recent urostomy, continue Vancomycin/Zosyn, continue current IV abx another 24h then de-escalate (2) CASANDRA (acute kidney injury) Code(s): N17.9 - ACUTE KIDNEY FAILURE, UNSPECIFIED Status: Acute Plan: Continue IVF's, avoid nephrotoxic meds and limit contrast exposure (3) Hyponatremia Code(s): E87.1 - HYPO-OSMOLALITY AND HYPONATREMIA Status: Acute Plan: Improved, continue IV NS, serial Na+ monitoring (4) Bladder carcinoma Code(s): C67.9 - MALIGNANT NEOPLASM OF BLADDER, UNSPECIFIED Status: Chronic Plan: s/p cystoprostatectomy with ileal conduit, supportive mgmt - Plan continue antibiotics, social psychologist, out of bed/ambulate, DVT proph w/SCDs Stable currently Continue IVF's Continue Zosyn/Vancomycin OOB/ambulate Imodium PRN AM lab: BMP, CBC, Mg++ Likely d/c in 48h
[2019-08-04] MEDS ORDERED: Vancomycin HCl 1.25 GM in Sodium Chloride 0.9% 250 ML 250 ML IVPB SCH (20:00)
[2019-08-05] MEDS: Sodium Chloride 0.9% 1,000 ML IV SCH ×4 (00:48→16:32)
[2019-08-05] MEDS: Piperacillin/Tazobactam 3.375 GM in Sodium Chloride 0.9% 100 ML IVPB SCH ×2 (04:08→09:00)
[2019-08-05 04:51] LABS: Band 5 % (5-11); Elliptocytes SLIGHT = 2-5 cells (100X) (0-1/hpf); Eosinophils 18 % (0-10); Hemoglobin 8.7 g/dL (14.0-18.0); Hypochromia SLIGHT = 6-15 cells (100X) (0-5/hpf); Lymphocytes 18 % (21-51); MDiff Complete? YES; Mean Corpuscular HGB CONC 33.2 g/dL (32.0-36.0); Mean Corpuscular Hemoglobin 31.8 pg (27.0-31.0); Mean Corpuscular Volume 95.8 fL (78.0-98.0); Mean Platelet Volume 7.3 fL (7.4-10.4); Metamyelocyte 1 % (0-0); Monocytes 11 % (0-10); Neutrophil 45 % (42-75); Platelet Count 198 thou/uL (130-400); Platelet Morphology Comment Appears Adequate; RBC Distribution Width 15.3 % (11.5-14.5); Red Blood Cell (RBC) Count 2.74 mill/uL (4.70-6.10); White Blood Cell (WBC) Count 4.8 thou/uL (4.8-10.8)
[2019-08-05 05:02] LABS: Anion Gap 9 mmol/L (10-20); BUN (Urea Nitrogen) 18 mg/dL (8.4-25.7); Calc. Creatinine Clearance 63 mL/min (70-130); Calcium 8.1 mg/dL (7.8-10.44); Carbon Dioxide 23 mmol/L (23-31); Chloride 107 mmol/L (98-107); Estimated GFR-MDRD 63; Glucose 97 mg/dL (80-115); Magnesium 1.5 mg/dL (1.6-2.6); Potassium 3.6 mmol/L (3.5-5.1); Sodium 135 mmol/L (136-145)
[2019-08-05] MEDS: Enoxaparin Sodium 40 MG/0.4 ML SYRINGE SC SCH (08:58)
--- NOTE | 2019-08-05 10:26 | PDOC.HOSPP ---
- Subjective Encounter Date: 08/05/19 Encounter Time: 14:00 Subjective: Patient seen and examined for Sepsis. Feeling better. No new complaints. No overnight events - Objective Vital Signs & Weight: Vital Signs (12 hours) Temp Pulse Resp BP Pulse Ox 08/05/19 08:00 100 08/05/19 07:29 97.9 F 64 16 98/54 L 100 Weight Admit Weight 149 lb 11.2 oz Weight 149 lb 11.2 oz I&O: 08/04/19 08/05/19 08/06/19 06:59 06:59 06:59 Intake Total 1980 4735 400 Output Total 1350 2550 500 Balance 630 2185 -100 Result Diagrams: 08/05/19 04:15 08/05/19 04:15 Additional Labs: Laboratory Tests 08/03/19 08/04/19 08/05/19 17:28 03:50 04:15 Sodium 128 L Magnesium 1.4 L 1.5 L Radiology Reviewed by me: Yes (CXR - neg (earlier this month)) Hospitalist ROS - Review of Systems Respiratory: denies: cough, dry, shortness of breath, hemoptysis, SOB with excertion, pleuritic pain, sputum, wheezing, other Cardiovascular: denies: chest pain, palpitations, orthopnea, paroxysmal noc. dyspnea, edema, light headedness, other - Medication Medications: Active Medications Generic Name Dose Route Start Last Admin Trade Name Freq PRN Reason Stop Dose Admin Enoxaparin Sodium 40 mg 08/04/19 09:00 08/05/19 08:58 Lovenox SC Not Given 0900 JANES Piperacillin Sod/Tazobactam 100 mls @ 200 mls/hr 08/03/19 22:00 08/05/19 09: 00 Sod 3.375 gm/ Sodium Chloride IVPB 100 mls 0400,1000,1600,2200 JANES Administration Sodium Chloride 1,000 mls @ 125 mls/hr 08/03/19 21:30 08/05/19 05:01 Normal Saline 0.9% IV Not Given .Q8H JANES Vancomycin HCl 1.25 gm/ Sodium 250 mls @ 166.667 mls/hr 08/04/19 20:00 19:52 Chloride IVPB 08/10/19 22:00 250 mls 2000 JANES Administration Loperamide HCl 2 mg 08/04/19 16:41 08/04/19 18:37 Imodium PO 2 mg PRN PRN Administration Diarrhea/Loose Stools Pantoprazole Sodium 40 mg 08/04/19 09:00 08/05/19 08:58 Protonix PO 40 mg DAILY JANES Administration - Exam General Appearance: NAD Neck: supple, no JVD Heart: RRR, no gallops Respiratory: no wheezes, no ronchi Gastrointestinal: non-tender, non-distended, normal bowel sounds Extremities: no cyanosis Neurological: no new deficit Hosp A/P - Plan DVT proph w/SCDs Sepsis with Toxic Metabolic Encephalopathy due to complicated UTI/Pyelonephritis -improving -on IV Vanc/Zosyn CASANDRA on CKD 2 -improving h/o bladder tumor and radical cystoprostatectomy w/ ileal conduit and LN dissection 07/18/2019 -completed chemotherapy Hyponatremia -improving Hypomagnesemia/Hypokalemia Chronic Anemia due to nutritional def Tobacco dep -counselled PLAN: Change IV Atbx to Cefepume Consult ID due to complicated UTI Reduce IVF Replace Magnesium Cont other meds
[2019-08-05] MEDS ORDERED: Magnesium Sulfate 4 GM in Sodium Chloride 0.9% 250 ML 250 ML IVPB SCH (10:30)
[2019-08-05] MEDS: Potassium Chloride 20 MEQ TAB PO SCH ×2 (11:33→16:30)
[2019-08-05] MEDS: Cefepime 1 GM in Sodium Chloride 0.9% 100 ML IVPB SCH (16:31)
--- NOTE | 2019-08-05 17:38 | EKG ---
Test Reason : Blood Pressure : / mmHG Vent. Rate : 102 BPM Atrial Rate : 102 BPM P-R Int : 136 ms QRS Dur : 078 ms QT Int : 338 ms P-R-T Axes : -20 -04 -42 degrees QTc Int : 440 ms Sinus tachycardia Inferior infarct , age undetermined Abnormal ECG Confirmed by NICOLLE BOLDEN, ANSHU Garay ([id number]), editor at large BEA TOWNSEND ([id number]) on 08/05/2019 5:38:10 PM Referred By: Confirmed By:ANSHU VALVERDE MD
[2019-08-06] MEDS: Sodium Chloride 0.9% 1,000 ML IV SCH (04:02)
[2019-08-06] MEDS: Cefepime 1 GM in Sodium Chloride 0.9% 100 ML IVPB SCH ×2 (04:04→15:53)
[2019-08-06 08:07] VITALS: BP 122/57; TEMP 98.1
--- NOTE | 2019-08-06 10:34 | PDOC.HOSPP ---
- Subjective Encounter Date: 08/06/19 Encounter Time: 09:30 Subjective: Patient seen and examined for Sepsis. No fever or chills. No flank pain. No new complaints. No overnight events - Objective Vital Signs & Weight: Vital Signs (12 hours) Temp Pulse Resp BP Pulse Ox 08/06/19 08:00 98.1 F 65 16 122/57 L 100 Weight Admit Weight 149 lb 11.2 oz Weight 149 lb 11.2 oz I&O: 08/05/19 08/06/19 08/07/19 06:59 06:59 06:59 Intake Total 4735 3005 Output Total 2550 2550 Balance 2185 455 Result Diagrams: 08/05/19 04:15 08/05/19 04:15 Additional Labs: Laboratory Tests 08/05/19 04:15 Magnesium 1.5 L Microbiology 08/04/19 08:18 Stool C. difficile GDH Antigen & Toxins - Final 08/03/19 18:26 Venous blood - Left Arm Blood Culture - Preliminary NO GROWTH AT 48 HOURS 08/03/19 18:20 Venous blood - Right Arm Blood Culture - Preliminary NO GROWTH AT 48 HOURS 08/03/19 17:32 Urine voided Urine Culture - Preliminary Pseudomonas aeruginosa Hospitalist ROS - Review of Systems Respiratory: denies: cough, dry, shortness of breath, hemoptysis, SOB with excertion, pleuritic pain, sputum, wheezing, other Cardiovascular: denies: chest pain, palpitations, orthopnea, paroxysmal noc. dyspnea, edema, light headedness, other Gastrointestinal: denies: nausea, vomiting, abdominal pain, diarrhea, constipation, melena, hematochezia, other - Medication Medications: Active Medications Generic Name Dose Route Start Last Admin Trade Name Freq PRN Reason Stop Dose Admin Cefepime HCl 1 gm/ Sodium 100 mls @ 200 mls/hr 08/05/19 15:00 08/06/19 04:04 Chloride IVPB 100 mls 0300,1500 JANES Administration Sodium Chloride 1,000 mls @ 70 mls/hr 08/05/19 15:50 08/06/19 04:02 Normal Saline 0.9% IV 1,000 mls .[id number] JANES Administration Loperamide HCl 2 mg 08/04/19 16:41 08/04/19 18:37 Imodium PO 2 mg PRN PRN Administration Diarrhea/Loose Stools Pantoprazole Sodium 40 mg 08/04/19 09:00 08/06/19 09:40 Protonix PO 40 mg DAILY JANSE Administration - Exam General Appearance: NAD Heart: RRR, no gallops Respiratory: CTAB, no rales Gastrointestinal: soft, non-tender, non-distended, normal bowel sounds Extremities: no cyanosis, no clubbing Neurological: no new deficit Hosp A/P - Plan DVT proph w/SCDs Sepsis with Toxic Metabolic Encephalopathy due to complicated UTI/Pyelonephritis -improving -on IV Cefepime CASANDRA on CKD 2 -improving h/o bladder tumor and radical cystoprostatectomy w/ ileal conduit and LN dissection 07/18/2019 -completed chemotherapy Hyponatremia -improving Hypomagnesemia/Hypokalemia -replaced Chronic Anemia due to nutritional def Tobacco dep -counselled PLAN: Cont IV Cefepume Await ID input Reduce IVF to 50 ml/hr Cont other meds as above
[2019-08-06] MEDS ORDERED: Sodium Chloride 0.9% 1,000 ML IV SCH (10:37)
[2019-08-06] MEDS ORDERED: Ciprofloxacin 500 MG TAB PO SCH (18:15)
--- NOTE | 2019-08-06 18:34 | DIS ---
DATE OF ADMISSION: 08/03/2019 DATE OF DISCHARGE: 08/06/2019 DISCHARGE DISPOSITION: Home. FOLLOWUP: Follow up with primary care physician at [facility] in 1 week. The patient was seen and examined on the day of discharge. Please refer to my progress note for details. DISCHARGE MEDICATIONS: Ciprofloxacin 500 mg twice daily for next 10 days. BRIEF HOSPITAL COURSE: The patient is a 64-year-old male with bladder cancer with recent radical cystoprostatectomy with ileal conduit and lymph node resection, presented to the hospital with fever, lethargy, and dizziness. His temperature was 103. Please refer to the history and physical for further details. The patient was admitted to the hospital with a diagnosis of sepsis with toxic metabolic encephalopathy secondary to pyelonephritis. He was started on broad-spectrum antibiotics that was narrowed down to IV cefepime. His urine culture showed Pseudomonas sensitive to ciprofloxacin. Blood cultures remained negative. He also had electrolyte abnormalities, which were replaced. The patient was evaluated by Infectious Disease and Urology this hospitalization. The patient has been cleared by Infectious Disease for discharge. FINAL DIAGNOSES: 1. Sepsis with toxic metabolic encephalopathy due to complicated urinary tract infection/pyelonephritis. 2. Acute kidney injury on chronic kidney disease stage 2, improved. 3. Hyponatremia. 4. Hypomagnesemia. 5. Hypokalemia. 6. Chronic anemia due to nutritional deficiency. 7. Tobacco dependence. 8. History of bladder tumor with recent radical cystoprostatectomy with ileal conduit with lymph node dissection. The patient understands the above plan of care. Job ID: [id number]
[2019-08-06] MEDS ORDERED: Cipro 250 MG TAB PO SCH (20:00)
--- NOTE | 2019-08-06 20:11 | CON ---
DATE OF CONSULTATION: 08/06/2019 REASON FOR CONSULTATION: Urinary tract infection following recent cystectomy, prostatectomy, and ileal conduit. HISTORY OF PRESENT ILLNESS: A 64-year-old patient who has a history of transitional bladder cancer as well as prostate cancer treated with total cystectomy and prostatectomy with ileal conduit. Prior to the intervention, the patient had adjuvant chemotherapy through a port in the right IJ location. Initial diagnosis was established in December 2018. At that time, there was a high-grade muscle invasive profile identified, so on July 17, he had cystoprostatectomy and did quite well until the 02 of August when he developed fever. He was admitted and started on broad-spectrum antimicrobial therapy. The patient is now feeling well, is back to his baseline. Denies any headaches, visual symptoms, sore throat, odynophagia, or dysphagia. No cough, no sputum production. No chest pain. No abdominal pain or diarrhea. No genitourinary symptoms. He has one of those non-continent urinary diversions. 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 Recent total cystectomy and prostatectomy on July 17 with lymph node dissection. He also had a port placement for neoadjuvant chemo by Dr. Du. FAMILY HISTORY: Prostate cancer. SOCIAL HISTORY: He is a local [place]. He is right now unemployed. He has a 45 pack-year smoking history. Drinks daily 1 to 2 beers. He lives in [place]. ALLERGIES: NO KNOWN DRUG ALLERGIES. CURRENT MEDICATIONS: Include; 1. Tylenol. 2. [place]. 3. DuoNeb. 4. Dulcolax. 5. Cefepime. 6. Catapres. 7. Robitussin. 8. Normodyne. 9. Zofran. 10. Imodium. 11. Promethazine. PHYSICAL EXAMINATION: VITAL SIGNS: He has been afebrile. Since admission BP 120/50, pulse 65, respirations 16, and O2 saturation 100 on room air. GENERAL: Appears in no distress, very pleasant. Port is accessed at the moment. No lymphadenopathy. HEENT: Ocular movements conjugate. Oral cavity normal. NECK: Supple. LUNGS: Symmetric clear breath sounds. S1 and S2 regular rate. ABDOMEN: Ileal conduit noted with no complications. Abdomen is flat, soft, not distended, nontender. MUSCULOSKELETAL: No joint inflammatory activity. Pulses are excellent. EXTREMITIES: Lower extremities, no edema. NEURO: Nonfocal. LABORATORY DATA: White cell count is down from 11 to 4.8, hemoglobin 8.7, platelets 198 with normal differential, some lymphocytopenia. Sodium 135; creatinine 1.17 , which is markedly improved from admission when it was 1.8. Liver profile normal. Urinalysis with greater than 50 wbc's. Microbiology with Pseudomonas aeruginosa with a very broad susceptibility profile. ASSESSMENT: Transitional cell cancer and prostate cancer status post total cystoprostatectomy with ileal conduit and now infection likely pyelonephritis. No bacteremia has been identified. The organism is broadly susceptible to various antimicrobials. Following non-continent urinary diversion, the bacterial population of the ileum is controlled with empiric antimicrobial therapy and then there is a re-population after the initial 10 days by a mixed population of yeast, gram-positive rods and gram-negative rods including Escherichia coli, Proteus, Pseudomonas and Klebsiella, mostly contained within the mucus, but not associated with columnar cells. So, urine from those conduits will naturally be bacteriuric and in most case does not require treatment unless the patient develops clinical symptoms that are suggestive of an invasive infection. Major concern is renal function impairment due to retrograde infection of the kidneys. Those systems are low-pressure systems, so usually no antireflux mechanism is inserted in the anastomosis. The incidence and characteristics of urinary tract infection after non-continent urinary diversion have been reported in only a few studies and about 20% to 23% developing urinary tract infection. The median time between the surgery and the first episode of urinary tract infections around 48 months, so this case is quite early development of this complication. If there is recurrence of the pyelonephritis, then the possibility of post-renal obstruction needs to be evaluated, particularly anastomotic stricture, stomal stenosis, or urolithiasis. So for this patient, I would consider transitioning to oral Cipro for discharge planning and treat him for about 14 days approximately and monitor for recurrence. If there is recurrence and I would be concerned for some post renal obstruction. Job ID: [id number] [facility]
[2019-08-07] MEDS ORDERED: Ciprofloxacin 500 MG TAB PO SCH (08:00)
== END 2019-08-06 19:46 | disposition home or self-care (01) | DRG 871 ==
LOC: ERS 17:03 → ONC 18:45
PROVIDERS: ADMIT Internal Medicine; ATTEND Internal Medicine
DX: A41.52 Sepsis due to Pseudomonas (principal); G92 Toxic encephalopathy; N12 Tubulo-interstitial nephritis, not specified as acute or chronic; N17.9 Acute kidney failure, unspecified; E87.1 Hypo-osmolality and hyponatremia; N18.2 Chronic kidney disease, stage 2 (mild); E83.42 Hypomagnesemia; E87.6 Hypokalemia; D50.9 Iron deficiency anemia, unspecified; F17.210 Nicotine dependence, cigarettes, uncomplicated; E86.0 Dehydration
CPT/HCPCS: 36415; 80048; 80053; 81003; 81015; 83605; 83690; 83735; 85025; 87040; 87077; 87086; 87186; 87324; 87449; 93005; 96361; 96374; 96375; J0692; J0696; J1642; J1650; J2543; J3370; J3475; J3490; J7050

== ENCOUNTER 2019-09-13 14:00 | Emergency (ER) | payer OTHER ==
--- NOTE | 2019-09-13 14:34 | RAD ---
EXAM: Single view of the chest HISTORY: Chest pain COMPARISON: 01/26/2019 FINDINGS: Single view of the chest shows a normal sized cardiomediastinal silhouette. The Mediport i s unchanged in position. There is no evidence of consolidation, mass, or pleural effusion. The bones are unremarkable IMPRESSION: No evidence of acute cardiopulmonary disease
[2019-09-13 14:57] LABS: #Lymphocytes 2.1 thou/uL (1.20-3.40); #Monocytes 0.8 thou/uL (0.11-0.59); #Neutrophils 3.6 thou/uL (1.40-6.50); %Basophils 0.7 % (0.0-1.0); %Eosinophils 0.6 % (0.0-10.0); %Lymphocytes 31.3 % (21.0-51.0); %Monocytes 12.2 % (0.0-10.0); %Neutrophils 55.2 % (42.0-75.0); Hemoglobin 11.8 g/dL (14.0-18.0); Mean Corpuscular HGB CONC 32.6 g/dL (32.0-36.0); Mean Corpuscular Hemoglobin 29.9 pg (27.0-31.0); Mean Corpuscular Volume 91.8 fL (78.0-98.0); Mean Platelet Volume 7.9 fL (7.4-10.4); Platelet Count 216 thou/uL (130-400); RBC Distribution Width 16.8 % (11.5-14.5); Red Blood Cell (RBC) Count 3.93 mill/uL (4.70-6.10); White Blood Cell (WBC) Count 6.6 thou/uL (4.8-10.8)
[2019-09-13 15:20] LABS: ALT (SGPT) 7 U/L (8-55); AST (SGOT) 16 U/L (5-34); Albumin 4.1 g/dL (3.4-4.8); Alkaline Phosphatase 77 U/L (40-110); Anion Gap 13 mmol/L (10-20); BUN (Urea Nitrogen) 24 mg/dL (8.4-25.7); Bilirubin, Total 0.7 mg/dL (0.2-1.2); Calc. Creatinine Clearance 0 mL/min (70-130); Calcium 9.5 mg/dL (7.8-10.44); Carbon Dioxide 29 mmol/L (23-31); Chloride 102 mmol/L (98-107); Estimated GFR-MDRD 60; Globulin 4.4 g/dL (2.4-3.5); Glucose 100 mg/dL (80-115); Lipase 31 U/L (8-78); Potassium 4.1 mmol/L (3.5-5.1); Protein, Total 8.5 g/dL (5.8-8.1); Sodium 140 mmol/L (136-145)
[2019-09-13] MEDS ORDERED: Iopamidol-370 76% 500 ML 1 ML ONE (15:27)
[2019-09-13 16:56] LABS: Troponin I Less than 0.010 ng/mL (< 0.028)
[2019-09-13] MEDS ORDERED: Ketorolac Tromethamine 30 MG/ML VIAL ONE (17:42)
--- NOTE | 2019-09-13 18:54 | CT ---
CT PULMONARY ANGIOGRAM WITH IV CONTRAST AND 3-D POSTPROCESSING: HISTORY:Chest pain. Bladder cancer FINDINGS: There is good contrast opacification of the pulmonary arterial vasculature without filling defects to suggest pulmonary embolism. The thoracic aorta is without aneurysm. Vascular calcifications are present. No pleural or pericardial effusions are seen. No pneumothoraces, focal areas of consolidation or lung nodules are noted. Mild emphysematous changes are present. There are degenerative changes in the spine. Tiny bone islands in the right ribs are stable since 01/16/2019. Minimal chronic appearing physiologic wedging of the T5 and T6 vertebral bodies are stable. IMPRESSION: No CT evidence of pulmonary embolism.
== END 2019-09-13 18:10 | disposition home or self-care (01) ==
LOC: ERS 14:00
DX: S29.011A Strain of muscle and tendon of front wall of thorax, initial encounter (principal); F17.210 Nicotine dependence, cigarettes, uncomplicated; X50.0XXA Overexertion from strenuous movement or load, initial encounter
CPT/HCPCS: 36415; 71045; 71275; 80053; 83690; 84484; 85025; 93005; 96374; J1885; Q9967

== ENCOUNTER 2019-10-10 09:08 | Outpatient (CLI) | payer OTHER ==
--- NOTE | 2019-10-10 10:41 | CT ---
EXAM: CT chest, abdomen, and pelvis with IV contrast: HISTORY: Bladder cancer. COMPARISON: CT thorax on 09/13/2019 and 01/16/[address] abdomen and pelvis on 12/12/2018 FINDINGS: CT THORAX: Lungs: Mild bullous emphysematous changes are seen in each lung apex. Linear atelectasis is present a t the right lung base. No mass or pulmonary nodule is identified. Pleura: No pleural effusion. Lymph nodes: No lymphadenopathy. Mediastinum: Vascular calcifications are seen in the thoracic aorta and involving the coronary arteri es. A right internal jugular vein Mediport catheter remains in place. Chest wall: No abnormalities CT ABDOMEN AND PELVIS: Liver: Within normal limits. Gallbladder: Within normal limits. \ Pancreas: Within normal limits. Spleen: Within normal limits. Adrenal glands: Within normal limits. Kidneys: Normal appearance without evidence of hydronephrosis. Urinary Bladder: Surgically removed with right lower quadrant urostomy. Reproductive organs: Prostate gland surgically removed. Bowel: Normal in caliber. Postoperative changes with small bowel right pelvis are present with eviden ce of urostomy. Adenopathy:No lymphadenopathy within the abdomen or pelvis. However, there is a very small irregular area of soft tissue density seen in the right anterolateral pelvis adjacent to the tip of the appendix. This is favored to represent area of mild scarring versus is in region of postoperative pedro nges involving loop of small bowel in site of urostomy. Peritoneum: No free fluid or fluid collection is seen. No free intraperitoneal gas is identified. Osseous structures: Degenerative change seen in the spine. No suspicious lytic or sclerotic osseous l esions are identified. IMPRESSION: 1. No findings to suggest metastatic disease involving the chest, abdomen, or pelvis. 2. Postoperative changes related to cystectomy with right lower quadrant urostomy. 3. Area of minimal soft tissue density in the right anterolateral pelvis adjacent to the tip of the a ppendix. This is probably due to an area of minimal scarring as this is in region of postoperative changes and site of the urostomy. No lymphadenopathy is seen.
[2019-10-10] MEDS ORDERED: Iopamidol-370 76% 500 ML 1 ML ONE (13:14)
== END 2019-10-10 09:09 | disposition home or self-care (01) ==
LOC: BICCT 09:08
PROVIDERS: ATTEND Internal Medicine Hematology & Oncology
DX: C67.2 Malignant neoplasm of lateral wall of bladder (principal); M79.89 Other specified soft tissue disorders; Z93.6 Other artificial openings of urinary tract status; Z98.890 Other specified postprocedural states
CPT/HCPCS: 71260; 74177; Q9967

== ENCOUNTER 2019-12-05 08:42 | Day surgery (SDC) | payer OTHER ==
[~2019-12-05 08:42] MED LIST changes: -PEGFILGRASTIM-JMDB 6 MG/0.6 ML SYRINGE ONE; -PEGFILGRASTIM-JMDB 6 MG/0.6 ML SYRINGE SQ SCH; +Sodium Chloride 0.9% 20 ML ONE
[2019-12-05 13:15] VITALS: BP 172/85; TEMP 97.9
== END 2019-12-05 13:16 | disposition home or self-care (01) ==
LOC: ONC/OP 08:42
PROVIDERS: ATTEND Internal Medicine Hematology & Oncology
DX: Z45.2 Encounter for adjustment and management of vascular access device (principal); C67.2 Malignant neoplasm of lateral wall of bladder; C61 Malignant neoplasm of prostate
CPT/HCPCS: 96523; J1642

== ENCOUNTER 2020-02-13 12:31 | Day surgery (SDC) | payer OTHER ==
[2020-02-13] MEDS ORDERED: Sodium Chloride 0.9% 10 ML ONE (12:38)
[2020-02-13 12:40] VITALS: BP 136/73; TEMP 98.3
== END 2020-02-13 12:54 | disposition home or self-care (01) ==
LOC: ONC/OP 12:31
PROVIDERS: ATTEND Internal Medicine Hematology & Oncology
DX: Z45.2 Encounter for adjustment and management of vascular access device (principal); C61 Malignant neoplasm of prostate; C67.2 Malignant neoplasm of lateral wall of bladder
CPT/HCPCS: 96523; J1642

== ENCOUNTER 2020-04-19 13:00 | Outpatient (CLI) | payer OTHER ==
[~2020-04-19 13:00] MED LIST changes: +Iopamidol-370 76% 500 ML 1 ML ONE; -Sodium Chloride 0.9% 20 ML ONE
== END 2020-04-19 13:01 | disposition home or self-care (01) ==
LOC: BICCT 13:00
PROVIDERS: ATTEND Internal Medicine Hematology & Oncology
DX: C67.2 Malignant neoplasm of lateral wall of bladder (principal); C61 Malignant neoplasm of prostate
CPT/HCPCS: 71260; 74177; Q9967